=== PATIENT | female | born 1950 | race Caucasian/White ===

== ENCOUNTER 2020-03-04 12:05 | Outpatient (REF) | payer MEDICARE, SELFPAY ==
--- NOTE | 2020-03-04 12:11 | MM_ITS ---
EXAMINATION: MM SCREENING DIGITAL BREAST TOMOSYNTHESIS, BILATERAL CLINICAL INFORMATION: Screening. Asymptomatic. The lifetime risk of breast cancer based on the Tyrer-Cuzick Model is 6.5%. COMPARISON: Mammography: February 23, 2019 and studies dating back to April 19, 2006 TECHNIQUE: Digital breast tomosynthesis is performed in both the craniocaudal and mediolateral oblique views along with computer-aided detection (CAD). Synthesized 2D images are generated from the tomosynthesis. FINDINGS: There are scattered areas of fibroglandular density (ACR BI-RADS breast composition Category b). There are no significant masses, abnormal calcifications, or other abnormalities. MM/MM tomosynthesis screening BI IMPRESSION: There are no significant changes from prior study. ASSESSMENT: BI-RADS 1: Negative RECOMMENDATION: Routine annual mammography screening. This patient's information was entered into a reminder system with a target due date for their next mammogram.
== END 2020-03-04 12:06 | disposition home or self-care (01) ==
LOC: HO.MAMMO 12:05
PROVIDERS: PCP Internal Medicine; Visit Provider Internal Medicine
DX: Z12.31 Encounter for screening mammogram for malignant neoplasm of breast (principal)
CPT/HCPCS: 77063; 77067

== ENCOUNTER 2020-03-16 13:48 | Outpatient (REF) | payer MEDICARE, SELFPAY ==
[2020-03-16 18:12] LABS: Estimated Average Glucose 206 mg/dL; Hemoglobin A1c % 8.8 %
[2020-03-16 18:20] LABS: Cholesterol 153 mg/dL; HDL Cholesterol 38 mg/dL; LDL Cholesterol Calculated 78 mg/dl; Triglycerides 185 mg/dL
== END 2020-03-16 13:49 | disposition home or self-care (01) ==
LOC: HO.MANLR 13:48
PROVIDERS: PCP Internal Medicine; Visit Provider Physician Assistant
DX: E11.9 Type 2 diabetes mellitus without complications (principal)
CPT/HCPCS: 80061; 83036

== ENCOUNTER 2020-06-17 11:03 | Outpatient (REF) | payer MEDICARE, SELFPAY ==
[2020-06-17 13:33] LABS: Estimated Average Glucose 226 mg/dL; Hemoglobin A1c % 9.5 %
[2020-06-17 13:33] LABS: Microalbum/Creatinine Ratio Ur 11.2 ug/mg cr
[2020-06-17 13:37] LABS: Alanine Aminotransferase 28 U/L (0-31); Albumin Level 4.1 g/dL (3.5-5.0); Alkaline Phosphatase 175 U/L (39-117); Anion Gap 13 (12-20); Aspartate Amino Transferase 26 U/L (5-31); Bilirubin Total 1.5 mg/dL (0.0-1.0); Blood Urea Nitrogen 17 mg/dL (9-16); Calcium 9.1 mg/dL (8.4-10.2); Carbon Dioxide 28 mmol/L (22-29); Chloride 99 mmol/L (96-108); Cholesterol 158 mg/dL; Estimated Glomerular Filt Rate > 60; Glucose Fasting 265 mg/dL (60-99); HDL Cholesterol 38 mg/dL; LDL Cholesterol Calculated 77 mg/dl; Potassium 4.9 mmol/L (3.3-5.1); Sodium 135 mmol/L (135-145); Total Protein 6.8 g/dL (6.5-8.0); Triglycerides 217 mg/dL
== END 2020-06-17 11:04 | disposition home or self-care (01) ==
LOC: HO.MANLR 11:03
PROVIDERS: PCP Internal Medicine; Visit Provider Physician Assistant
DX: E11.9 Type 2 diabetes mellitus without complications (principal)
CPT/HCPCS: 36415; 80053; 80061; 82043; 83036

== ENCOUNTER 2020-09-21 13:36 | Outpatient (REF) | payer MEDICARE, SELFPAY ==
[2020-09-21 18:01] LABS: Estimated Average Glucose 189 mg/dL; Hemoglobin A1c % 8.2 %
== END 2020-09-21 13:37 | disposition home or self-care (01) ==
LOC: HO.MANLDS 13:36
PROVIDERS: PCP Internal Medicine; Visit Provider Physician Assistant
DX: E11.9 Type 2 diabetes mellitus without complications (principal)
CPT/HCPCS: 36415; 83036

== ENCOUNTER 2020-12-16 10:56 | Outpatient (REF) | payer MEDICARE, SELFPAY ==
[2020-12-16 13:49] LABS: Vitamin D 25-OH Total 49.6 ng/mL (>30)
[2020-12-17 07:34] LABS: Estimated Average Glucose 192 mg/dL; Hemoglobin A1c % 8.3 %
== END 2020-12-16 10:57 | disposition home or self-care (01) ==
LOC: HO.MANLDS 10:56
PROVIDERS: PCP Physician Assistant; Visit Provider Physician Assistant
DX: E55.9 Vitamin D deficiency, unspecified (principal); E11.9 Type 2 diabetes mellitus without complications
CPT/HCPCS: 36415; 82306; 83036

== ENCOUNTER 2021-04-28 13:34 | Outpatient (REF) | payer MEDICARE, SELFPAY ==
[2021-04-28 17:36] LABS: Alanine Aminotransferase 24 U/L (0-31); Albumin Level 4.1 g/dL (3.5-5.0); Alkaline Phosphatase 124 U/L (39-117); Anion Gap 13 (12-20); Aspartate Amino Transferase 22 U/L (5-31); Blood Urea Nitrogen 16 mg/dL (9-16); Calcium 9.4 mg/dL (8.4-10.2); Carbon Dioxide 27 mmol/L (22-29); Chloride 103 mmol/L (96-108); Cholesterol 213 mg/dL; Estimated Glomerular Filt Rate > 60; Glucose Random 123 mg/dL (60-115); HDL Cholesterol 44 mg/dL; LDL Cholesterol Calculated 125 mg/dl; Potassium 3.8 mmol/L (3.3-5.1); Sodium 139 mmol/L (135-145); Total Protein 6.9 g/dL (6.5-8.0); Triglycerides 224 mg/dL
[2021-04-28 17:38] LABS: Estimated Average Glucose 157 mg/dL; Hemoglobin A1c % 7.1 %
[2021-04-28 18:25] LABS: Creatinine Urine 31.93 mg/dL; Microalbumin Urine < 5.0 mg/L
== END 2021-04-28 13:35 | disposition home or self-care (01) ==
LOC: HO.MANLDS 13:34
PROVIDERS: PCP Physician Assistant; Visit Provider Physician Assistant
DX: E11.9 Type 2 diabetes mellitus without complications (principal)
CPT/HCPCS: 36415; 80053; 80061; 82043; 83036

== ENCOUNTER 2021-07-21 15:42 | Outpatient (REF) | payer OTHER, SELFPAY | END 2021-07-21 15:43 | disposition home or self-care (01) | LOC: HO.MANLDS 15:42 | PROVIDERS: PCP Physician Assistant; Visit Provider Physician Assistant | DX: R30.0 Dysuria (principal) | CPT/HCPCS: 87086; 87088; 87186 ==

== ENCOUNTER 2021-10-09 10:21 | Outpatient (REF) | payer OTHER, SELFPAY ==
[2021-10-09 14:07] LABS: Vitamin D 25-OH Total 37.9 ng/mL (>30)
== END 2021-10-09 10:22 | disposition home or self-care (01) ==
LOC: HO.MANLDS 10:21
PROVIDERS: Visit Provider Physician Assistant
DX: E55.9 Vitamin D deficiency, unspecified (principal)
CPT/HCPCS: 36415; 82306

== ENCOUNTER 2022-01-10 09:31 | Outpatient (REF) | payer OTHER, SELFPAY ==
[2022-01-10 11:29] LABS: Estimated Average Glucose 148 mg/dL; Hemoglobin A1c % 6.8 %
[2022-01-10 11:59] LABS: Creatinine Urine 23.32 mg/dL; Microalbumin Urine < 5.0 mg/L
[2022-01-10 14:45] LABS: Alanine Aminotransferase 20 U/L (0-31); Albumin Level 4.2 g/dL (3.5-5.0); Alkaline Phosphatase 147 U/L (39-117); Anion Gap 15 (12-20); Aspartate Amino Transferase 20 U/L (5-31); Bilirubin Total 1.2 mg/dL (0.0-1.0); Blood Urea Nitrogen 16 mg/dL (9-16); Calcium 9.3 mg/dL (8.4-10.2); Carbon Dioxide 26 mmol/L (22-29); Chloride 102 mmol/L (96-108); Cholesterol 224 mg/dL; Estimated Glomerular Filt Rate > 60; Glucose Random 211 mg/dL (60-115); HDL Cholesterol 45 mg/dL; LDL Cholesterol Calculated 139 mg/dl; Potassium 4.4 mmol/L (3.3-5.1); Sodium 139 mmol/L (135-145); Triglycerides 201 mg/dL
[2022-01-10 15:10] LABS: Vitamin D 25-OH Total 42.5 ng/mL (>30)
== END 2022-01-10 09:32 | disposition home or self-care (01) ==
LOC: HO.MANLDS 09:31
PROVIDERS: Visit Provider Physician Assistant
DX: E11.65 Type 2 diabetes mellitus with hyperglycemia (principal); E55.9 Vitamin D deficiency, unspecified
CPT/HCPCS: 36415; 80053; 80061; 82043; 82306; 83036

== ENCOUNTER 2022-04-13 10:39 | Outpatient (REF) | payer OTHER, SELFPAY ==
[2022-04-13 11:57] LABS: Estimated Average Glucose 160 mg/dL; Hemoglobin A1c % 7.2 %
== END 2022-04-13 10:40 | disposition home or self-care (01) ==
LOC: HO.MANLDS 10:39
PROVIDERS: Visit Provider Physician Assistant
DX: E11.65 Type 2 diabetes mellitus with hyperglycemia (principal); E55.9 Vitamin D deficiency, unspecified
CPT/HCPCS: 36415; 83036

== ENCOUNTER 2022-07-03 10:10 | Outpatient (REF) | payer OTHER, SELFPAY ==
[2022-07-03 12:16] LABS: Estimated Average Glucose 151 mg/dL; Hemoglobin A1c % 6.9 %
[2022-07-03 14:21] LABS: Alanine Aminotransferase 26 U/L (0-31); Alkaline Phosphatase 146 U/L (39-117); Anion Gap 13 (12-20); Aspartate Amino Transferase 22 U/L (5-31); Bilirubin Total 0.9 mg/dL (0.0-1.0); Blood Urea Nitrogen 16 mg/dL (9-16); Calcium 8.9 mg/dL (8.4-10.2); Carbon Dioxide 28 mmol/L (22-29); Chloride 103 mmol/L (96-108); Cholesterol 219 mg/dL; Estimated Glomerular Filt Rate > 60; Glucose Fasting 178 mg/dL (60-99); HDL Cholesterol 48 mg/dL; LDL Cholesterol Calculated 150 mg/dl; Sodium 140 mmol/L (135-145); Total Protein 6.6 g/dL (6.5-8.0); Triglycerides 108 mg/dL
[2022-07-03 14:39] LABS: Vitamin D 25-OH Total 47.5 ng/mL (>30)
== END 2022-07-03 10:11 | disposition home or self-care (01) ==
LOC: HO.MANLDS 10:10
PROVIDERS: Visit Provider Physician Assistant
DX: E11.65 Type 2 diabetes mellitus with hyperglycemia (principal); E55.9 Vitamin D deficiency, unspecified
CPT/HCPCS: 36415; 80053; 80061; 82306; 83036

== ENCOUNTER 2022-10-05 09:44 | Outpatient (REF) | payer OTHER, SELFPAY ==
[2022-10-05 11:25] LABS: Estimated Average Glucose 157 mg/dL; Hemoglobin A1c % 7.1 %
[2022-10-05 11:29] LABS: Alanine Aminotransferase 36 U/L (0-31); Albumin Level 3.9 g/dL (3.5-5.0); Alkaline Phosphatase 143 U/L (39-117); Anion Gap 13 (12-20); Aspartate Amino Transferase 24 U/L (5-31); Bilirubin Total 1.1 mg/dL (0.0-1.0); Blood Urea Nitrogen 19 mg/dL (9-16); Calcium 9.1 mg/dL (8.4-10.2); Carbon Dioxide 25 mmol/L (22-29); Chloride 104 mmol/L (96-108); Cholesterol 205 mg/dL; Estimated Glomerular Filt Rate > 60; Glucose Random 238 mg/dL (60-115); HDL Cholesterol 45 mg/dL; LDL Cholesterol Calculated 115 mg/dl; Potassium 4.3 mmol/L (3.3-5.1); Sodium 138 mmol/L (135-145); Total Protein 6.7 g/dL (6.5-8.0); Triglycerides 229 mg/dL
[2022-10-05 11:45] LABS: Vitamin D 25-OH Total 67.2 ng/mL (>30)
== END 2022-10-05 09:45 | disposition home or self-care (01) ==
LOC: HO.MANLDS 09:44
PROVIDERS: Visit Provider Physician Assistant
DX: E11.65 Type 2 diabetes mellitus with hyperglycemia (principal); E55.9 Vitamin D deficiency, unspecified
CPT/HCPCS: 36415; 80053; 80061; 82043; 82306; 83036

== ENCOUNTER 2023-01-11 09:58 | Outpatient (REF) | payer OTHER, SELFPAY ==
[2023-01-11 14:31] LABS: Estimated Average Glucose 160 mg/dL; Hemoglobin A1c % 7.2 % (<6.0)
[2023-01-11 14:46] LABS: Creatinine Urine 53.43 mg/dL; Microalbum/Creatinine Ratio Ur 20.5 ug/mg cr (<30)
[2023-01-11 14:59] LABS: Alanine Aminotransferase 28 U/L (0-31); Albumin Level 4.1 g/dL (3.5-5.0); Alkaline Phosphatase 134 U/L (39-117); Anion Gap 15 (12-20); Aspartate Amino Transferase 25 U/L (5-31); Bilirubin Total 1.3 mg/dL (0.0-1.0); Blood Urea Nitrogen 16 mg/dL (9-16); Calcium 9.1 mg/dL (8.4-10.2); Carbon Dioxide 23 mmol/L (22-29); Chloride 105 mmol/L (96-108); Cholesterol 215 mg/dL (<200); Estimated Glomerular Filt Rate > 60; Glucose Random 254 mg/dL (60-115); HDL Cholesterol 44 mg/dL (>40); LDL Cholesterol Calculated 133 mg/dL (<100); Potassium 3.7 mmol/L (3.3-5.1); Sodium 139 mmol/L (135-145); Total Protein 7.1 g/dL (6.5-8.0); Triglycerides 190 mg/dL (<150); Vitamin D 25-OH Total 74.8 ng/mL (>30)
== END 2023-01-11 09:59 | disposition home or self-care (01) ==
LOC: HO.MANLDS 09:58
PROVIDERS: Visit Provider Physician Assistant
DX: E11.65 Type 2 diabetes mellitus with hyperglycemia (principal); E55.9 Vitamin D deficiency, unspecified
CPT/HCPCS: 36415; 80053; 80061; 82043; 82306; 82570; 83036

== ENCOUNTER 2023-01-18 10:53 | Outpatient (REF) | payer OTHER, SELFPAY ==
[2023-01-18 14:13] LABS: Appearance Urine Clear; Color Urine Yellow; Glucose Urine UA >=1000 mg/dL (Negative); Leukocyte Esterase Urine Trace (Negative); Nitrite Urine Negative (Negative); Specific Gravity - Urine 1.015 (1.005-1.025); UMIC TRIGGER UACC YES; Urine Blood Negative (Negative); Urine Ketones Negative (Negative); Urine Protein Negative (Neg-Trace)
[2023-01-18 14:20] LABS: Bacteria Urine None Seen (None Seen); Hyaline Casts Urine 0-2 /LPF (0-2); RBC Urine 0-2 /HPF (0-2); Squamous Epithelial Cell Urine 0-2 /HPF (0-2); WBC Urine 0-5 /HPF (0-5)
== END 2023-01-18 10:54 | disposition home or self-care (01) ==
LOC: HO.MANLDS 10:53
PROVIDERS: Visit Provider Physician Assistant
DX: R30.0 Dysuria (principal)
CPT/HCPCS: 81001; 81003

== ENCOUNTER 2023-04-05 10:44 | Outpatient (REF) | payer OTHER, SELFPAY | END 2023-04-05 10:45 | disposition home or self-care (01) | LOC: HO.MANLDS 10:44 | PROVIDERS: Visit Provider Physician Assistant | DX: E11.65 Type 2 diabetes mellitus with hyperglycemia (principal); M81.0 Age-related osteoporosis without current pathological fracture | CPT/HCPCS: 36415; 80053; 82306; 83036 ==

== ENCOUNTER 2023-07-16 11:40 | Outpatient (REF) | payer OTHER, SELFPAY ==
[2023-07-16 15:22] LABS: Cholesterol 226 mg/dL (<200); HDL Cholesterol 46 mg/dL (>40); LDL Cholesterol Calculated 141 mg/dL (<100); Triglycerides 196 mg/dL (<150)
== END 2023-07-16 11:41 | disposition home or self-care (01) ==
LOC: HO.MANLDS 11:40
PROVIDERS: Visit Provider Physician Assistant
DX: E11.65 Type 2 diabetes mellitus with hyperglycemia (principal)
CPT/HCPCS: 36415; 80061

== ENCOUNTER 2024-01-22 10:17 | Outpatient (REF) | payer OTHER, SELFPAY ==
[2024-01-27 12:09] LABS: VITAMIN D (1,25 OH) D3 30 pg/mL; Vit D (1,25-Dihydroxy) Total 30 pg/mL (18-72); Vitamin D (1,25 OH) D2 <8 pg/mL
== END 2024-01-22 10:18 | disposition home or self-care (01) ==
LOC: HO.MANLDS 10:17
PROVIDERS: Internal Medicine; Visit Provider Physician Assistant
DX: M81.0 Age-related osteoporosis without current pathological fracture (principal)
CPT/HCPCS: 36415; 82652

== ENCOUNTER 2024-04-29 12:34 | Outpatient (REF) | payer OTHER, SELFPAY ==
[2024-04-29 12:57] LABS: MANUAL DIFF FLAG NO
[2024-04-29 13:06] LABS: Basophils Percent Auto 0.1 % (0-2); Eosinophils Absolute Auto 0.1 X10*3/uL (0.0-0.4); Hematocrit 41.3 % (37.0-47.0); Hemoglobin 14.3 g/dl (12.0-16.0); Imm Gran Abs Auto 0.02 X10*3/uL (0.00-0.03); Imm Gran Pct Auto 0.3 % (0.0-0.4); Lymphocytes Absolute Auto 2.3 X10*3/uL (1.2-4.9); Lymphocytes Percent Auto 32.9 % (20-40); Mean Corpuscular HGB Conc 34.6 g/dl (31.0-35.0); Mean Corpuscular Hemoglobin 28.2 pg (27.0-33.0); Mean Corpuscular Volume 81.5 fL (80.0-98.0); Mean Platelet Volume 9.1 fL (9.4-12.3); Monocytes Absolute Auto 0.4 X10*3/uL (0.1-1.2); Monocytes Percent Auto 5.3 % (2-11); Neutrophils Absolute Auto 4.2 x10*3/uL (2.0-8.3); Neutrophils Percent Auto 60.4 % (45-73); Platelet Count 241 X10*3/uL (160-400); Red Blood Count 5.07 X10*6/uL (4.20-5.50); Red Cell Distribution Width 12.1 % (11.0-16.0)
[2024-04-29 13:33] LABS: Estimated Average Glucose 180 mg/dL; Hemoglobin A1C 236.9663 umol/L; Hemoglobin A1c % 7.9 % (<6.0); Total Hemoglobin (HGBA1C) 3753.4126 umol/L
[2024-04-29 13:52] LABS: Alanine Aminotransferase 34 U/L (0-31); Albumin Level 4.1 g/dL (3.5-5.0); Alkaline Phosphatase 139 U/L (39-117); Anion Gap 12 (12-20); Aspartate Amino Transferase 33 U/L (5-31); Bilirubin Total 1.4 mg/dL (0.0-1.0); Blood Urea Nitrogen 16 mg/dL (9-16); Carbon Dioxide 25 mmol/L (22-29); Chloride 103 mmol/L (96-108); Cholesterol 235 mg/dL (<200); Estimated Glomerular Filt Rate > 60; Glucose Random 209 mg/dL (60-115); HDL Cholesterol 44 mg/dL (>40); LDL Cholesterol Calculated 162 mg/dL (<100); Potassium 4.2 mmol/L (3.3-5.1); Sodium 136 mmol/L (135-145); Total Protein 7.2 g/dL (6.5-8.0); Triglycerides 145 mg/dL (<150)
[2024-04-29 14:06] LABS: Vitamin D 25-OH Total 41.6 ng/mL (>30)
--- OUTSIDE RECORDS SUMMARY | 2024-04-29 14:44 | XMS_ITS | Data Portability ---
Author Organization [facility] Service Address [address] [place] [address] Assessment Encounter Date Assessment Date Assessment LastModified by Organization Details LastModified Time 10/09/2022 10/09/2022 The patient denies recent falls or recurrent falls. Denies instability, weakness, abnormal gait, or difficulties with movement. The patient wears correct, supportive shoes and is not otherwise severely visually impaired. The patient is full weight bearing and if using the assistance of a cane or walker feels supported and stable with the use of such devices. All medical conditions have been taken into account that may pose a risk for the patient for falls. Home nigel, carpets and/or rugs do not pose a challenge for the patient. The patient has been educated about the use of vitamin D supplementation for bone health and prevention of hypotensive episodes that may increase risk for fall. All question and concerns were answered to the patient's satisfaction. [email or web address] Not available 10/09/2022 14:47:07 04/10/2023 04/10/2023 Patient agreed and verbally consents to this audio and video Telehealth appt via a secure platform [email or web address] Not available 04/10/2023 15:36:20 Plan of Treatment Reminders Order Date Submit Date Provider Last Modified By Organization Details Last Modified Time Details Appointments FOLLOW UP 15 2024 04:00P M VICKY HENRY Not available Not available Not available Lab urinalysi s complete, reflex culture 2022 023 [facility], [address] [place] [address], [place], [address], 01/21/2023 11:32:32 vitamin D, 25-hydrox y, total, serum 2023 024 [facility], [address] [place] [address], [id number], 10/22/2023 14:57:03 HbA1c (hemoglob in A1c), blood 2023 [facility], [address] [place] [address], [id number], 10/22/2023 14:57:03 CMP, serum or plasma 2023 [facility], [address] [place] [address], [place], [address], 10/22/2023 14:57:03 lipid panel, serum 2023 [facility], [address] [place] [address], [id number], 10/22/2023 14:57:03 CBC w/ auto diff 2023 [facility], [address] [place] [address], [id number], 10/22/2023 14:57:03 Referral None recorded. Procedures None recorded. Surgeries None recorded. Imaging None recorded. Medication Orders None recorded. Patient TargetsNo targets recorded. Patient Instructions Encounter Date Encounter Id Patient Instructions Last Modified By Organization Details Last Modified Time 10/09/2022 [id number] statins: care instructions [email or web address] Not available 10/09/2022 14:47:38 Reason for Referral None Reported. Results Created Date Observation Date Name Description Value Unit Range Abnormal Flag Note LastModifiedBy Organization Detail LastModifiedTime Result Notes None recorded. 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/ nml intraocul ar pressure Ariadna zamudio [place] - [facility] 13:28:39 Dysuria 91296111 Active 2021 VICKY HENRY [address] [place], [address], [facility] 2 15:01:01 Opioid abuse 1912254 Active 2017 [facility]one [facility] 13:28:39 Menopaus e Active 2017 [facility] 13:28:39 Type 2 diabetes mellitus 49270809 Active 2017 Ariadnavaughn [facility] 9 13:28:39 [facility]ia l hyperten quinn 65926002 Active 2017 Ariadna Jose [facility] 9 13:28:39 Hyperlip idemia 07470527 Active 2017 Ariadnavaughn [facility] 9 13:28:39 Osteopor osis 62730839 Active 2017 Ariadna Jose [facility] 9 13:28:39 Depressi ve disorder 89992930 Active 2017 Ariadna Jose [facility] 9 13:28:39 Vitamin D deficien cy 66725449 Active 2017 Ariadna Jose [facility] 9 13:28:39 Problem Notes None recorded. Medical Equipment None Reported. Allergies No known drug allergies Medications Name Sig Start Date Stop Date Status Note LastModified by Organization Details LastModified Time Prescriptio n - New 08/24 completed Not Available Not Available Not Available penicillin V potassium 250 mg tablet TAKE 1 TABLET BY MOUTH EVERY 6 HOURS 05/03 completed Not Available Not Available Not Available atorvastati n 20 mg tablet Take 1 tablet daily. active Not Available Not Available No t Available atorvastati n 10 mg tablet 03/22 completed Not Available Not Available Not Available ibuprofen 800 mg tablet 10/11 completed Not Available Not Available Not Available FreeStyle Lancets 28 gauge USE DIRECTED TWICE DAILY active Not Available Not Available No t Available sulfamethox azole 800 mg-trimetho prim 160 mg tablet TAKE 1 TABLET BY MOUTH EVERY 12 HOURS FOR 7 DAYS 10/11 completed Not Available Not Available Not Available prednisolon e acetate 1 % eye drops,suspe nsion 12/24 completed Not Available Not Available Not Available lisinopril 10 mg tablet TAKE 1 TABLET BY MOUTH EVERY DAY active Not Available Not Available No t Available amoxicillin 250 mg capsule TAKE ONE CAPSULE BY MOUTH EVERY 8 HOURS FOR 7 DAYS 05/03 completed Not Available Not Available Not Available alcohol swabs 01/31 completed Not Available Not Available Not Available ergocalcife rol (vitamin D2) 1,250 mcg (50,000 unit) capsule TAKE 1 CAPSULE BY MOUTH EVERY WEEK active Not Available Not Available No t Available metformin ER 500 mg tablet,exte nded release 24 hr TAKE 2 TABLETS BY MOUTH EVERY DAY 10/11 completed Not Available Not Available Not Available bupropion HCl XL 300 mg 24 hr tablet, extended release TAKE 1 TABLET BY MOUTH EVERY DAY active Not Available Not Available No t Available duloxetine 20 mg capsule,del ayed release TAKE 1 CAPSULE BY MOUTH EVERY DAY 12/14 completed Not Available Not Available Not Available multivitami n qd active Not Available Not Available Not Available FreeStyle Lite Meter kit active Not Available Not Available Not Available FreeStyle Lite Strips USE TO CHECK BLOOD SUGAR DAILY 2021 active Not Available Not Available Not Avai lable Calcium 500 With D qd active Not Available Not Available Not Available Prevnar 13 (PF) 0.5 mL intramuscul ar syringe ADM 0.5ML IM UTD 06/21 completed Not Available Not Available Not Available melatonin 5 mg capsule Take 1 capsule every day by oral route. active Not Available Not Available No t Available buprenorphi ne 8 mg-naloxone 2 mg sublingual film DISSOLVE 1 FILM UNDER THE TONGUE EVERY DAY active Not Available Not Available No t Available magnesium 400 mg (as magnesium oxide) capsule Take 1 capsule every day by oral route. active Not Available Not Available No t Available Trulicity 0.75 mg/0.5 mL subcutaneou s pen injector INJECT 0.5 ML SUBCUTANE OUSLY WEEKLY active Not Available Not Available No t Available Fluzone High-Dose (PF) 180 mcg/0.5 mL intramuscul ar syringe 05/29 completed Not Available Not Available Not Available Afluria Qd (36 mos up)(PF)60 mcg (15 mcg x4)/0.5 mL IM syringe ADM 0.5ML IM UTD 06/21 completed Not Available Not Available Not Available Vitals Date Recorded Body height Body mass index (BMI) Body weight Heart rate Oxygen saturation Oxygen saturation in Arterial blood by Pulse oximetry Systolic blood pressure Diastolic blood pressure Provider Name and Address Organization Details Last Updated DateTime 3 165.74 cm 33 kg/m2 37351.4 7 g 78 /min 98 % 98 % 142 mm[Hg] 80 mm[Hg] VICKY HENRY [address] [place], [address], [facility] 3 14:28:56 Date Recorded Body height Body mass index (BMI) Body weight Heart rate Oxygen saturation Oxygen saturation in Arterial blood by Pulse oximetry Systolic blood pressure Diastolic blood pressure Provider Name and Address Organization Details Last Updated DateTime 3 165.74 cm 32.5 kg/m2 61718.7 g 75 /min 97 % 97 % 134 mm[Hg] 70 mm[Hg] Yelitza Kong [facility] 3 13:42:12 Date Recorded Body height Body mass index (BMI) Body weight Heart rate Oxygen saturation Oxygen saturation in Arterial blood by Pulse oximetry Systolic blood pressure Diastolic blood pressure Provider Name and Address Organization Details Last Updated DateTime 4 167.64 cm 31.5 kg/m2 89151.5 1 g 66 /min 97 % 97 % 126 mm[Hg] 76 mm[Hg] Gerardo Robbins [facility] 4 14:26:29 Date Recorded Body height Body mass index (BMI) Body weight Heart rate Oxygen saturation Oxygen saturation in Arterial blood by Pulse oximetry Systolic blood pressure Diastolic blood pressure Provider Name and Address Organization Details Last Updated DateTime 4 167.64 cm 31.5 kg/m2 03710.5 1 g 68 /min 97 % 97 % 128 mm[Hg] 78 mm[Hg] Loni Esteves [facility] 4 15:18:30 Social History Question Answer Notes LastModified by Organizat ion Details LastModified Time Tobacco Smoking Status Former Smoker Not Available [facility] 02/02/2020 03:36:23 What Was The Date Of Your Most Recent Tobacco Screening? 01/27/2024 [email or web address] Information not available 01/27/2024 How Many Years Have You Smoked Tobacco? 35 [id number] Information not available 02/02/2020 Sex: Unknown Functional Status None recorded. Mental Status None recorded. Family History Nothing Reported. Medical History No medical history recorded. Gynecological HistoryNo gynecological history recorded. Obstetrics History GPAL:G 0 P 0 0 0 0 Immunizations Vaccine Type Date Status Note Provider Nam e and Address Organization Details Recorded Time COVID-19, mRNA, LNP-S, PF, 100 mcg/0.5mL dose or 50 mcg/0.25mL dose 1 [facility]20[facility] 08:16:32 COVID-19, mRNA, LNP-S, PF, 30 mcg/0.3 mL dose 2 completed Juanita zamudio [facility] 01/17/2022 08:16:46 COVID-19, mRNA, LNP-S, PF, 100 mcg/0.5mL dose or 50 mcg/0.25mL dose 2 completed Juanita Felder [facility] 01/17/2022 08:16:58 Influenza, split virus, quadrivalent, preservative 1 completed [facility] 01/17/2022 08:17:19 pneumococcal polysaccharide PPV23 1 completed [facility] 01/17/2022 08:17:40 influenza, unspecified formulation 2 completed [facility] 04/18/2022 08:14:20 Influenza, split virus, quadrivalent, preservative 9 completed Ariadna Garcia [facility] 03/11/2019 13:28:44 Pneumococcal conjugate PCV 13 0 completed [facility] 09/20/2020 09:34:38 COVID-19, mRNA, LNP-S, PF, 30 mcg/0.3 mL dose 1 completed Hazel zamudio [facility] 09/20/2020 09:34:53 COVID-19, mRNA, LNP-S, PF, 30 mcg/0.3 mL dose 1 completed Hazel zamudio [facility] 09/20/2020 09:35:00 Past Encounters Encounter ID Performer Location Encounter Start Date Encounter Closed Date Diagnosis/Indication Diagnosis SNOMED-CT Code Diagnosis ICD10 Code Diagnosis Note [id number] Caroline [facility] [address] [facility] [address] [address] 09/04/2017 13:59:06 09/04/2017 15:43:16 Type 2 diabetes mellitus 07412658 E11.65 going to work diet, eliminate ice cream Essential hypertension 24270708 I10 good control Osteoporosis 91477400 M8 1.0 on calcium, will add rx for vitamin d as she is insufficie nt emphasized importance of weight bearing exercise Depressive disorder 3548 9007 F33.9 continue bupropion Vitamin D deficiency 347 70535 E55.9 Hyperlipidemia 88995306 E78.5 will start atorvastat in as well [id number] [facility] [address] [facility],[place] [address] 12/11/2017 13:26:57 12/11/2017 14:04:47 Type 2 diabetes mellitus 78895225 E11.65 well controlled praised and encouraged to continue Essential hypertension 55795107 I10 good control Osteoporosis 39275091 M8 1.0 on both calcium and vitamin d emphasized importance of weight bearing exercise Depressive disorder 3548 9007 F33.9 continue bupropion Vitamin D deficiency 347 82826 E55.9 Hyperlipidemia 88494855 E78.5 well controlled on atorvastat in Screening procedure 2012 5006 Z13.9 [id number] [facility] [address] [facility] [address] [address] 03/18/2018 13:44:56 03/18/2018 16:46:30 Adult health examination 208341102 Z00.00 reviewed hcp Screening for cardiovascular system disease 892805878 Z13.6 utd and well controlled Screening for malignant neoplasm of colon 349172136 Z12.11 cologuard done 04/2016 will repeat 2020 refuses colonoscop y Screening for osteoporosis 709864452 Z13.820 bmd done 03/2017 Screening mammography 24 922965 Z12.31 mammo done 01/28/18 Screening for malignant neoplasm of cervix 504850927 Z12.4 had TAHBSO no longer requires pap Active or passive immunization 095371184 Z23 Body mass index 30+ - obesity 962174165 Z68.32 healthy diet and exercise Type 2 kan betes mellitus 06809959 E11.65 well controlled at 6.9 praised and encouraged to continue [id number] Suzanne Medrano NP, S [facility] [address] [facility], [place] [address] 06/17/2018 13:41:17 06/17/2018 15:16:40 Active or passive immunization 038462403 Z23 Type 2 kan betes mellitus 59708478 E11.65 check BS daily Vitamin D deficiency 347 91115 E55.9 on OTC, nml level Depressive disorder 3548 9007 F32.89 stable Hyperlipidemia 24360947 E78.2 Opioid abuse 9342966 F11 .10 consider tapering Essential hypertension 60032507 I10 [id number] [facility] [address] [facility], [place] [address] 09/26/2018 13:51:41 09/26/2018 14:36:32 Hyperlipidemia 20211973 E78.5 has been off med for a week, ran out LDL 154, will restart and increase dose in addition to diet Type 2 kan betes mellitus 15888014 E11.65 slightly elevated at 7.2 work on diet improvemen t Essential hypertension 22391446 I10 very well controlled Depressive disorder 3548 9007 F33.9 well controlled on wb Vitamin D deficiency 347 51425 E55.9 improved from 11/2017 will recheck now that she is just a vitamin d + calcium supplement [id number] [facility] [address] [facility],[place] [address] 12/24/2018 14:19:02 12/24/2018 15:13:56 Hyperlipidemia 32970022 E78.5 cholestero l much better controlled with atorvastat in Type 2 kan betes mellitus 13150126 E11.65 a1c improved from 7.2 to 6.9 keep up with diet and exercise Essential hypertension 77258289 I10 very well controlled Depressive disorder 5968 6427 F33.9 not as well controlled , feels like she has days where she is more depresssed and then sometimes she bounces back interested in trying cymbalta Vitamin D deficiency 347 88108 E55.9 stuck at 28 despite treatment, will build stores and then return to calcium + d as we approach the [facility] [address] [facility] [employer] [place] [address] 03/11/2019 13:20:12 03/11/2019 14:00:01 Hyperlipidemia 31031437 E78.5 cholestero l much better controlled with atorvastat in Type 2 kan betes mellitus 81466077 E11.65 a1c up to 7.3 agrees to exercise more goal is to exercise 30 minutes 5 times per week Essential hypertension 68737244 I10 very well controlled Depressive disorder 3898 7303 F33.9 depression is ok will consider trying duloxetine again no further changes at this time Vitamin D deficiency 347 99142 E55.9 improved. continue rx and then otc [place] [id number] VICKY HENRY [facility] [address] [facility] [employer] [address] 05/29/2019 10:29:52 05/29/2019 11:29:55 Dysuria 94865412 R30.9 that pt is having UTI symptoms including dysuria, increased frequency and itching for the past week U/A is postive for nitrites, WBCs, and glucose will be placing the pt on Bactrim for five days Type 2 kan betes mellitus 47165091 E11.9 Pt will have recheck of A1c and BS before next appt [id number] Caroline Jonathan [facility] [address] [facility] [employer] [address] 06/24/2019 13:34:17 07/06/2019 09:56:19 Depressive disorder 74584539 F33.9 depression is ok, worried about the current covid problem, but feels ok Type 2 kan betes mellitus 56758091 E11.65 a1c up to 8.7 very poor diet, not exercising determined to improve will defer med changes at this time f/u 3 months Hyperlipidemia 91037010 E78.5 cholestero [place] [id number] VICKY HENRY [facility] [address] [facility] [address],[place] [address] 08/25/2019 13:32:13 08/25/2019 15:23:13 Type 2 diabetes mellitus 47311183 E11.9 Pt will have recheck of A1c and BS before next appt work on diet and exercise hilda bw and if numbers are not down pt agrees on starting secondary medication for diabetes control Hyperlipidemia 05486809 E78.5 will stop atorvastat in and re check cmp Essential hypertension 93267253 I10 excellent [id number] VICKY HENRY [facility] [address] [facility],[place] [address] 09/08/2019 14:02:36 09/08/2019 14:39:44 Right upper quadrant pain 509045247 R10.11 hepatic function came back still elevated, even more so even after stopping her atorvastat in still having the RUQ pain, will check her on US to see if its related to gallbladde r or liver [id number] VICKY HENRY [facility] [address] [facility],[place] [address] 12/15/2019 13:38:06 12/15/2019 14:08:26 Depressive disorder 74572353 F32.9 stable Type 2 kan betes mellitus 32033189 E11.9 a1c is still the same will cut out breads and pastas, and reduce carbs the patient has been doing good otherwise with diet and cutting back on junk food will continue this and also cutting out pastas to see if it impacts the A1c Hyperlipidemia 00942329 E78.5 LFTs raised because of fatty liver not due to medication will start back on atrovastat in and monitor to make sure it is not any worse [id number] VICKY HENRY [facility] [address] [facility],[place] [address] 03/22/2020 10:07:31 03/22/2020 14:31:06 Essential hypertension 56211993 I10 excellent Type 2 kan betes mellitus 58587539 E11.9 a1c is still the same will cut out breads and pastas, and reduce carbs the patient has been doing good otherwise with diet and cutting back on junk food will continue this and also cutting out pastas to see if it impacts the A1c [id number] [facility] HENRY [facility] [address] [facility],[place] [address] 06/21/2020 14:08:33 06/21/2020 16:29:26 Type 2 diabetes mellitus 86052038 E11.9 a1c higher will cut out breads and pastas, and reduce carbs the patient has been doing good otherwise with diet and cutting back on junk food will continue this and also cutting out pastas to see if it impacts the A1c Hyperlipidemia 08994552 E78.5 much improved will continue on medication and fish oil supplement Essential hypertension 46412224 I10 BP fine today, will continue to monitor Depressive disorder 3548 9007 F32.9 [place] [id number] VICKY HENRY [facility] [address] [facility],[place] [address] 09/26/2020 14:13:05 09/26/2020 14:25:08 Type 2 diabetes mellitus 43971813 E11.65 A1c much improved with diet Opioid abuse 4072322 F11 .11 stable Depressive disorder 3548 9007 F33.9 stable today no interventi on Essential hypertension 85152968 I10 BP fine today, will continue to monitor Vitamin D below reference range 342708254 E55.9 will recheck vitamin D level [id number] V[facility] HENRY [facility] [address] [facility],[place] [address] 01/31/2021 11:13:41 01/31/2021 11:54:58 Type 2 diabetes mellitus 70362806 E11.65 A1c much improved with diet Essential hypertension 28280184 I10 BP fine today, will continue to monitor [id number] VICKY HENRY [facility] [address] [facility] [address],[place] [address] 05/03/2021 08:16:45 05/08/2021 10:39:11 Type 2 diabetes mellitus 15909933 E11.65 A1c much improved with diet Opioid abuse 8466006 F11 .11 stable Depressive disorder 0947 9007 F33.9 [place] [id number] VICKY HENRY [facility] [address] [facility],[place] [address] 07/21/2021 14:45:29 07/24/2021 09:53:54 Dysuria 76511415 R30.0 that pt is having UTI symptoms including dysuria, increased frequency and itching for the past week will be placing the pt on Bactrim for 7 days [id number] VICKY HENRY [facility] [address] [facility],[place] [address] 10/11/2021 14:18:17 10/11/2021 16:44:02 Type 2 diabetes mellitus 15484133 E11.65 A1c much improved with diet and trulicity Essential hypertension 61858104 I10 BP fine today, will continue to monitor [id number] V[facility] HENRY [facility] [address] [facility],[place] [address] 01/17/2022 14:01:49 01/19/2022 10:58:46 Type 2 diabetes mellitus 00838930 E11.65 A1c much improved with diet and trulicity Depressive disorder 5681 7497 F33.9 stable today no interventi on Hyperlipidemia 67579174 E78.5 much improved will continue on medication and fish oil supplement Essential hypertension 26799390 I10 BP fine today, will continue to monitor [id number] V[facility] HENRY [facility] [address] [facility] [address],[place] [address] 04/18/2022 14:01:40 04/18/2022 14:44:53 Type 2 diabetes mellitus 09519632 E11.65 pretty stable since last checkonly up to 7.2% Depressive disorder 9215 8787 F33.9 stable today no interventi on Essential hypertension 62878661 I10 BP fine today, will continue to monitorrec heck was 132/72 [id number] VICKY HENRY [facility] [address] [facility] [address],[place] [address] 07/06/2022 14:09:13 07/06/2022 15:22:46 Type 2 diabetes mellitus 43404164 E11.65 improved to 6.9% which is excellent results Depressive disorder 3548 9007 F33.9 stable today no interventi on Opioid abuse 9101493 F11 .11 stablestab le for years [id number] VICYK HENRY [facility] [address] [facility] [address],[place] [address] 10/09/2022 14:08:36 10/09/2022 16:21:26 Depressive disorder 76501425 F33.9 stable today no interventi on Essential hypertension 36682074 I10 BP fine today, will continue to monitorrec heck was 132/72 Hyperlipidemia 04161400 E78.2 much improved will continue on medication and fish oil supplement Type 2 kan betes mellitus 29202483 E11.65 up to 7.2%relate d to the holidaysis chana drop down again when she tightens up her diet [id number] VICKY HENRY [facility] [address] [facility] [address],[place] [address] 01/16/2023 13:19:12 01/16/2023 15:17:27 Dysuria 36389408 R30.0 will give urine on fri Type 2 kan betes mellitus 72884256 E11.65 up to 7.2%work on dietwas doing well at 6.9 [id number] VICKY HENRY [facility] [address] [facility] [address],[place] [address] 04/10/2023 08:02:17 04/10/2023 16:35:22 Type 2 diabetes mellitus 82896228 E11.65 up to 7.8%had COVID-19 which also contribute to higher sugar levelswork on diet and fu with test in 3 mos, if still elevated we discussed with patient about upping the trulicity which she is amendable to Vitamin D deficiency [id number] J94.9 excellent numbers [id number] VICKY HENRY [facility] [address] [facility] [address],[place] [address] 10/22/2023 14:15:30 10/23/2023 10:05:04 Depression screening [id number] Z13.31 negative Depressive disorder [id number] 9007 F33.9 stable today no interventi on Opioid abuse [id number] F11 .11 stablestab le for years Essential hypertension [id number] I10 BP is excellent Hyperlipidemia 38847955 E78.2 stable Type 2 kan betes mellitus [id number] E11.65 needs standing Vitamin D deficiency 347 97229 E55.9 excellent numbers [id number] VICKY HENRY [facility] [address] [facility] [address],[place] [address] 01/27/2024 15:12:58 01/27/2024 16:01:32 Depressive disorder 71210394 F33.9 stable today no interventi on Essential hypertension 59532483 I10 BP is excellent Type 2 kan betes mellitus 62151773 E11.65 needs standing Health Concerns Section Related Observation LastModified by Organization Detai ls LastModified Time None Recorded Concern Status LastModified by Organization Details LastModified Time None Recorded Advance Directives Directive None Recorded Payers Encounter Date Sequence Insurance Name Policy Number Policy Samuels Covered Member ID Samuels Member ID Guarantor Name 10/09/2022 1 [facility] - DOS ON OR AFTER 2022 - HALF-[employer]AY OPTIONS AND ONE CARE (MEDICARE REPLACEMENT/ADV ANTAGE - PPO) Rashmi Napoles Damaris [id number] Rashmi Napoles Damaris 01/16/2023 1 [facility] [employer] - DOS ON OR AFTER 2022 - HALF-WAY OPTIONS AND ONE CARE (MEDICARE REPLACEMENT/ADV ANTAGE - PPO) Rashmi Napoles Damaris [id number] Rashmi Napoles Damaris 04/10/2023 1 [facility] [employer] - DOS ON OR AFTER 2022 - [employer]AY [employer] AND ONE CARE (MEDICARE REPLACEMENT/ADV ANTAGE - PPO) Rashmi Napoles Damaris [id number] Rashmi Napoles Damaris 10/22/2023 1 [facility] [employer] - DOS ON OR AFTER 2022 - [employer]F-WAY [employer]IONS AND ONE CARE (MEDICARE REPLACEMENT/ADV ANTAGE - PPO) Rashmi Napoles Damaris [id number] Rashmi Napoles Damaris 01/27/2024 1 [facility] - DOS ON OR AFTER 2022 - HALF-WAY OPTIONS AND ONE CARE (MEDICARE REPLACEMENT/ADV ANTAGE - PPO) Rashmi Napoles Damaris [id number] Rashmi Ocampo Notes Date Note Type Note Provider Name a nd Address Organization Details Recorded Time 3 text/html f/u medication check depression disorder: stable on medicationHTN: the patient has stable BP at home; stable on recheck as lissette florian coatHLD: is stable; levels look [id number]: is up but related to her dietary changes; will work on thatfu in 3 mos VICKY HENRY [address] [facility], [place], [address], [facility] 10/09/2022 14:48:48 3 text/html 3 mos fu urinary frequency: could be urinary incontinence/overactiv e bladderher sugar is up to 7.2% from 6.9 notes her diet has been poorknows what she should avoidwill work on thatno issues with meds having urinary frequencycould be the sugar too but agreed to urinalysis just in case VICKY HENRY [address] [facility], [place], [address], [facility] 01/16/2023 14:02:52 4 text/html f/u 3 mos The patient is participating in this appointment via telemedicine communication with a phone call/video calling service ([place] [employer])The patient consents to use of these platforms in place of an in-person appointment due to either sick symptoms the patient is presenting with or current office closure due to COVID exposure in order to keep our office staff and patients safe the patient had COVID-19 about a week agothe patient mostly had headache and sinus pressurecurrently testing negative now the patient does not report any post-acute COVID-19 symptomsno cough, no fatigue the patient reports that her sugar has been highhave to take into consideration that she is coming off the holidays (admits she was eating poorly) and she was ill and her numbers were high when she had COVID-19 will give her a chance to implement lifestyle modifications and fu back up with repeat A1cif still elevated patient agrees to titrating up her trulicity dose no other concerns today VICKY HENRY [address] [place], [address], [facility] 04/10/2023 15:40:33 4 text/html f/u appt depression screening: The patient denies little pleasure in activities they find enjoyable, feeling depressed, difficulties sleeping, feeling tired or having little energy, change in appetite, feeling guilty, overwhelmed or unmotivated. The patient denies suicidal ideation, thoughts of hurting themselves or others. Their mood is appropriate, they show good judgement and clear understanding of the conversation. They are orientated to time, place and person. They are not expressing any concerning thoughts or actions that would need further investigation and treatment for mental health. HLD: needs BW T2DM: needs BW, didn't have standing orders, re-ordered vitamin D: stable VICKY HENRY [address] [place], [address], [facility] 10/22/2023 14:59:54 4 text/html medication f/u the patient reports that she is doing well with in the injections the patient reports that she did have one episode of nausea and vomiting otherwise no other side effects the patient does admit her diet isn't perfect, tries to stay on top of it did get her lab work as the hospital is two weeks behind currently with processing the lab feeling good overallBP is excellent waiting on her A1c and vitamin D levelwill f/u with patient after her lab-work VICKY HENRY [address] [place], [address], [facility] 01/27/2024 15:43:13 OBGyn Episode No OBEpisode recorded.
== END 2024-04-29 12:35 | disposition home or self-care (01) ==
LOC: HO.LABR 12:34
PROVIDERS: PCP Internal Medicine; Visit Provider Physician Assistant
DX: E78.2 Mixed hyperlipidemia (principal); E55.9 Vitamin D deficiency, unspecified; E11.65 Type 2 diabetes mellitus with hyperglycemia
CPT/HCPCS: 36415; 80053; 80061; 82306; 83036; 85025

== ENCOUNTER 2024-07-29 13:32 | Outpatient (REF) | payer OTHER, SELFPAY ==
[2024-07-29 13:47] LABS: MANUAL DIFF FLAG NO
[2024-07-29 14:07] LABS: Basophils Percent Auto 0.2 % (0-2); Eosinophils Absolute Auto 0.1 X10*3/uL (0.0-0.4); Hematocrit 41.5 % (37.0-47.0); Hemoglobin 14.5 g/dl (12.0-16.0); Imm Gran Abs Auto 0.01 X10*3/uL (0.00-0.03); Imm Gran Pct Auto 0.2 % (0.0-0.4); Lymphocytes Absolute Auto 2.3 X10*3/uL (1.2-4.9); Lymphocytes Percent Auto 37.5 % (20-40); Mean Corpuscular HGB Conc 34.9 g/dl (31.0-35.0); Mean Corpuscular Hemoglobin 28.4 pg (27.0-33.0); Mean Corpuscular Volume 81.4 fL (80.0-98.0); Mean Platelet Volume 9.3 fL (9.4-12.3); Monocytes Absolute Auto 0.3 X10*3/uL (0.1-1.2); Monocytes Percent Auto 5.6 % (2-11); Neutrophils Absolute Auto 3.4 x10*3/uL (2.0-8.3); Neutrophils Percent Auto 55.5 % (45-73); Platelet Count 212 X10*3/uL (160-400); Red Cell Distribution Width 12.3 % (11.0-16.0); White Blood Count 6.1 X10*3/uL (4.8-10.8)
[2024-07-29 14:17] LABS: Estimated Average Glucose 166 mg/dL; Hemoglobin A1C 217.2939 umol/L; Hemoglobin A1c % 7.4 % (<6.0); Total Hemoglobin (HGBA1C) 3795.1486 umol/L
[2024-07-29 14:44] LABS: Alanine Aminotransferase 34 U/L (0-31); Albumin Level 4.1 g/dL (3.5-5.0); Alkaline Phosphatase 148 U/L (39-117); Anion Gap 11 (12-20); Aspartate Amino Transferase 29 U/L (5-31); Bilirubin Total 1.4 mg/dL (0.0-1.0); Blood Urea Nitrogen 19 mg/dL (9-16); Calcium 9.2 mg/dL (8.4-10.2); Carbon Dioxide 25 mmol/L (22-29); Chloride 104 mmol/L (96-108); Cholesterol 243 mg/dL (<200); Estimated Glomerular Filt Rate > 60; Glucose Random 224 mg/dL (60-115); HDL Cholesterol 48 mg/dL (>40); LDL Cholesterol Calculated 156 mg/dL (<100); Sodium 136 mmol/L (135-145); Triglycerides 199 mg/dL (<150)
--- OUTSIDE RECORDS SUMMARY | 2024-07-29 14:50 | XMS_ITS | Data Portability ---
Author Organization [facility] Service Address [address] [place] [address] Assessment Encounter Date Assessment Date Assessment LastModified by Organization Details LastModified Time 04/10/2023 04/10/2023 Patient agreed and verbally consents to this audio and video Telehealth appt via a secure platform [email or web address] Not available 04/10/2023 15:36:20 Plan of Treatment Reminders Order Date Submit Date Provider Last Modified By Organization Details Last Modified Time Details Appointments FOLLOW UP 15 2024 03:45P VICKY ROMAN Not available Not available Not available Lab CMP, serum or plasma 2024 025 [facility], [address] [place] [address], [id number], 05/01/2024 16:05:33 HbA1c (hemoglob in A1c), blood 2024 025 [facility], [address] [place] [address], [id number], 05/01/2024 16:05:33 CBC w/ auto diff 2024 025 [facility], [address] [place] [address], [id number], 05/01/2024 16:05:34 hemoglobi n A1c, QN, blood 2024 025 [facility], [address] [place] [address], [id number], 05/01/2024 16:05:34 vitamin D, 25-hydrox y, total, serum 2023 024 [facility], [address] [place] [address], [id number], 10/22/2023 14:57:03 HbA1c (hemoglob in A1c), blood 2023 024 [facility], [address] [place] [address], [id number], 10/22/2023 14:57:03 CMP, serum or plasma 2023 024 [facility], [address] [place] [address], [id number], 10/22/2023 14:57:03 lipid panel, serum 2023 024 [facility], [address] [place] [address], [id number], 10/22/2023 14:57:03 CBC w/ auto diff 2023 024 [facility], [address] [place] [address], [id number], 10/22/2023 14:57:03 urinalysi s complete, reflex culture 2022 023 [facility], [address] [place] [address], [id number], 01/21/2023 11:32:32 Referral None recorded. Procedures None recorded. Surgeries None recorded. Imaging None recorded. Medication Orders None recorded. Patient TargetsNo targets recorded. Patient InstructionsNo instructions recorded. Reason for Referral None Reported. Results Created Date Observation Date Name Description Value Unit Range Abnormal Flag Note LastModifiedBy Organization Detail LastModifiedTime Result Notes None recorded. 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 Ariadna zamudio [facility] 9 13:28:39 Menopaus e Active [facility] 13:28:39 Type 2 diabetes mellitus 61830842 Active 2017 [facility] 9 13:28:39 [facility] hyperten quinn 96160664 Active 2017 Ariadna Jose [facility] 9 13:28:39 Hyperlip idemia 65747059 Active 2017 Ariadnavaughn Garcia [facility] 9 13:28:39 Osteopor osis 67523847 Active 2017 Ariadanvaughn Garcia [facility] 9 13:28:39 Depressi ve disorder 44587474 Active 2017 [facility]aughn [facility] 13:28:39 Vitamin D deficien cy 02308220 Active 2017 Ariadna Jose [facility] 9 13:28:39 Problem Notes None recorded. Medical [...] Not Available atorvastati n 20 mg tablet TAKE 1 TABLET BY MOUTH DAILY active Not Available Not Available No [...] TAKE 1 TABLET BY MOUTH EVERY DAY 2024 active Not Available Not Available Not Avai lable duloxetine 20 mg capsule,del ayed release TAKE [...] injector INJECT 0.5 ML SUBCUTANE OUSLY WEEKLY 2024 active Not Available Not Available Not Avai lable Fluzone High-Dose 2018- (PF) 180 mcg/0.5 mL intramuscul ar syringe [...] Updated DateTime 3 165.74 cm 32.5 kg/m2 80183.7 g 75 /min 97 % 97 % 134 mm[Hg] 70 mm[Hg] Yelitza Kong [facility] 3 13:42:12 Date Recorded Body height Body mass index (BMI) Body weight Heart rate Oxygen saturation Oxygen saturation in Arterial blood by Pulse oximetry Systolic blood pressure Diastolic blood pressure Provider Name and Address Organization Details Last Updated DateTime 4 167.64 cm 31.5 kg/m2 39635.5 1 g 66 /min 97 % 97 % 126 mm[Hg] 76 mm[Hg] Gerardo Robbins [facility] 4 14:26:29 Date Recorded Body height Body mass index (BMI) Body weight Heart rate Oxygen saturation Oxygen saturation in Arterial blood by Pulse oximetry Systolic blood pressure Diastolic blood pressure Provider Name and Address Organization Details Last Updated DateTime 4 167.64 cm 31.5 kg/m2 20032.5 1 g 68 /min 97 % 97 % 128 mm[Hg] 78 mm[Hg] Loni Esteves [facility] 4 15:18:30 Date Recorded Body height Body mass index (BMI) Body weight Heart rate Oxygen saturation Oxygen saturation in Arterial blood by Pulse oximetry Systolic blood pressure Diastolic blood pressure Provider Name and Address Organization Details Last Updated DateTime 5 167.64 cm 31.4 kg/m2 07874.7 9 g 78 /min 96 % 96 % 138 mm[Hg] 64 mm[Hg] Loni Esteves [facility] 5 15:51:42 Social History Question Answer Notes LastModified by Organizat ion Details LastModified Time Tobacco Smoking Status [facility]oker Not Available [facility]/2020 03:36:23 What Was The Date Of Your Most Recent Tobacco Screening? 01/27/2024 [email or web address] Information not available 01/27/2024 How Many Years Have You Smoked Tobacco? 35 [id number] Information not available 02/02/2020 Sex: Unknown Functional [...] or 50 mcg/0.25mL dose 1 completed Juanita zamudio [facility] 01/17/2022 08:16:32 COVID-19, mRNA, LNP-S, PF, 30 mcg/0.3 mL dose 2 completed Juanita zamudio [facility] 01/17/2022 08:16:46 COVID-19, mRNA, LNP-S, PF, 100 mcg/0.5mL dose or 50 mcg/0.25mL dose 2 completed Juanita zamudio [facility] 01/17/2022 08:16:58 Influenza, split virus, quadrivalent, preservative 1 completed Juanita zamudio [facility] 01/17/2022 08:17:19 pneumococcal polysaccharide PPV23 1 completed Juanita zamudio [facility] 01/17/2022 08:17:40 influenza, unspecified formulation 2 completed Juanita zamudio [facility] 04/18/2022 08:14:20 Influenza, split virus, quadrivalent, preservative 9 completed Ariadna zamudio [facility] 03/11/2019 13:28:44 Pneumococcal conjugate PCV 13 0 completed Hazel zamudio [facility] 09/20/2020 09:34:38 COVID-19, mRNA, LNP-S, PF, 30 mcg/0.3 mL dose 1 completed Hazel zamudio [facility] 09/20/2020 09:34:53 COVID-19, mRNA, LNP-S, PF, 30 mcg/0.3 mL dose 1 completed Hazel zamudio [facility] 09/20/2020 09:35:00 Past Encounters Encounter ID Performer Location Encounter Start Date Encounter Closed Date Diagnosis/Indication Diagnosis SNOMED-CT Code Diagnosis ICD10 Code Diagnosis Note [id number] Parag Roberts [facility] [address] [facility] [address] 09/04/2017 13:59:06 09/04/2017 15:43:16 Type 2 diabetes mellitus 21824926 E11.65 going to work diet, eliminate ice cream Essential hypertension 50465406 I10 good control Osteoporosis 21979979 M8 1.0 on calcium, will add rx for vitamin d as she is insufficie nt emphasized importance of weight bearing exercise Depressive disorder 3548 9007 F33.9 continue bupropion Vitamin D deficiency 347 03166 E55.9 Hyperlipidemia 05775911 E78.5 will start atorvastat in as well [id number] Parag Roberts [facility] [address] [facility] [facility] [address] 12/11/2017 13:26:57 12/11/2017 14:04:47 Type 2 diabetes mellitus 91097540 E11.65 well controlled praised and encouraged to continue Essential hypertension 41541496 I10 good control Osteoporosis 31342660 M8 1.0 on both calcium and vitamin d emphasized importance of weight bearing exercise Depressive disorder 3548 9007 F33.9 continue bupropion Vitamin D deficiency 347 99087 E55.9 Hyperlipidemia 23488158 E78.5 well controlled on atorvastat in Screening procedure 2012 5006 Z13.9 [id number] Parag Roberts [facility] [address] [facility] [address] 03/18/2018 13:44:56 03/18/2018 16:46:30 Adult health examination 562170096 Z00.00 reviewed hcp Screening for cardiovascular system disease 356452307 Z13.6 utd and well controlled Screening for malignant neoplasm of colon 269810260 Z12.11 cologuard done 04/2016 will repeat 2020 refuses colonoscop y Screening for osteoporosis 421214326 Z13.820 bmd done 03/2017 Screening mammography 24 612253 Z12.31 mammo done 01/28/18 Screening for malignant neoplasm of cervix 825880587 Z12.4 had TAHBSO no longer requires pap Active or passive immunization 925121233 Z23 Body mass index 30+ - obesity 519955367 Z68.32 healthy diet and exercise Type 2 kan betes mellitus 75438357 E11.65 well controlled at 6.9 praised and encouraged to continue [id number] Suzanne Medrano NP, S [facility] [address] [facility], [place] [address] 06/17/2018 13:41:17 06/17/2018 15:16:40 Active or passive immunization 314421267 Z23 Type 2 kan betes mellitus 09550958 E11.65 check BS daily Vitamin D deficiency 347 92301 E55.9 on OTC, nml level Depressive disorder 3548 9007 F32.89 stable Hyperlipidemia 09047102 E78.2 Harmful pa ttern of use of opioid 3076811 F11.10 consider tapering Essential hypertension 24913650 I10 [id number] Parag Roberts DO [facility] [address] [facility], [place] [address] 09/26/2018 13:51:41 09/26/2018 14:36:32 Hyperlipidemia 38135150 E78.5 has been off med for a week, ran out LDL 154, will restart and increase dose in addition to diet Type 2 kan betes mellitus 43796031 E11.65 slightly elevated at 7.2 work on diet improvemen t Essential hypertension 06468313 I10 very well controlled Depressive disorder 3548 9007 F33.9 well controlled on wb Vitamin D deficiency 347 17268 E55.9 improved from 11/2017 will recheck now that she is just a vitamin d + calcium supplement [id number] Parag Roberts DO [facility] [address] [facility] [address] 12/24/2018 14:19:02 12/24/2018 15:13:56 Hyperlipidemia 89018204 E78.5 cholestero l much better controlled with atorvastat in Type 2 kan betes mellitus 30501236 E11.65 a1c improved from 7.2 to 6.9 keep up with diet and exercise Essential hypertension 72782234 I10 very well controlled Depressive disorder 3548 9007 F33.9 not as well controlled , feels like she has days where she is more depresssed and then sometimes she bounces back interested in trying cymbalta Vitamin D deficiency 347 27943 E55.9 stuck at 28 despite treatment, will build stores and then return to calcium + d as we approach the winter [id number] Parag Roberts [facility] [address] [facility] [address] 03/11/2019 13:20:12 03/11/2019 14:00:01 Hyperlipidemia 45016088 E78.5 cholestero l much better controlled with atorvastat in Type 2 kan betes mellitus 07604480 E11.65 a1c up to 7.3 agrees to exercise more goal is to exercise 30 minutes 5 times per week Essential hypertension 22283823 I10 very well controlled Depressive disorder 3548 9007 F33.9 depression is ok will consider trying duloxetine again no further changes at this time Vitamin D deficiency 347 36135 E55.9 improved. continue rx and then otc when all done with [place] [id number] Parag Roberts DO [facility] [address] [facility] [address] [address] 05/29/2019 10:29:52 05/29/2019 11:29:55 Dysuria 93844100 R30.9 that pt is having UTI symptoms including dysuria, increased frequency and itching for the past week U/A is postive for nitrites, WBCs, and glucose will be placing the pt on Bactrim for five days Type 2 kan betes mellitus 89855257 E11.9 Pt will have recheck of A1c and BS before next appt [id number] Parag Roberts DO [facility] [address] [facility] [address] [address] 06/24/2019 13:34:17 07/06/2019 09:56:19 Depressive disorder 59749350 F33.9 depression is ok, worried about the current covid problem, but feels ok Type 2 kan betes mellitus 38464670 E11.65 a1c up to 8.7 very poor diet, not exercising determined to improve will defer med changes at this time f/u 3 months Hyperlipidemia 59641627 E78.5 cholestero [place] [id number] Parag Roberts [facility] [address] [facility] [address] [address] 08/25/2019 13:32:13 08/25/2019 15:23:13 Type 2 diabetes mellitus 25645332 E11.9 Pt will have recheck of A1c and BS before next appt work on diet and exercise hilda bw and if numbers are not down pt agrees on starting secondary medication for diabetes control Hyperlipidemia 49025140 E78.5 will stop atorvastat in and re check cmp Essential hypertension 61306892 I10 excellent [id number] Parag Roberts [facility] [address] [facility] [place] [address] 09/08/2019 14:02:36 09/08/2019 14:39:44 Right upper quadrant pain 623126923 R10.11 hepatic function came back still elevated, even more so even after stopping her atorvastat in still having the RUQ pain, will check her on US to see if its related to gallbladde r or liver [id number] Parag Roberts [facility] [address] [facility] [place] [address] 12/15/2019 13:38:06 12/15/2019 14:08:26 Depressive disorder 93460065 F32.9 stable Type 2 kan betes mellitus 07444585 E11.9 a1c is still the same will cut out breads and pastas, and reduce carbs the patient has been doing good otherwise with diet and cutting back on junk food will continue this and also cutting out pastas to see if it impacts the A1c Hyperlipidemia 26955411 E78.5 LFTs raised because of fatty liver not due to medication will start back on atrovastat in and monitor to make sure it is not any worse [id number] Parag Roberts DO [facility] [address] [facility] [address],[place] [address] 03/22/2020 10:07:31 03/22/2020 14:31:06 Essential hypertension 38862320 I10 excellent Type 2 kan betes mellitus 76424060 E11.9 a1c is still the same will cut out breads and pastas, and reduce carbs the patient has been doing good otherwise with diet and cutting back on junk food will continue this and also cutting out pastas to see if it impacts the A1c [id number] Parag Roberts DO [facility] [address] [facility] [address] [address] 06/21/2020 14:08:33 06/21/2020 16:29:26 Type 2 diabetes mellitus 82616295 E11.9 a1c higher will cut out breads and pastas, and reduce carbs the patient has been doing good otherwise with diet and cutting back on junk food will continue this and also cutting out pastas to see if it impacts the A1c Hyperlipidemia 44246183 E78.5 much improved will continue on medication and fish oil supplement Essential hypertension 49197389 I10 BP fine today, will continue to monitor Depressive disorder 3548 9007 F32.9 [place] [id number] Parag Roberts DO [facility] [address] [facility] [address],[place] [address] 09/26/2020 14:13:05 09/26/2020 14:25:08 Type 2 diabetes mellitus 66338158 E11.65 A1c much improved with diet Harmful pa ttern of use of opioid 6462186 F11.11 stable Depressive disorder 3548 9007 F33.9 stable today no interventi on Essential hypertension 68278434 I10 BP fine today, will continue to monitor Vitamin D below reference range 399707154 E55.9 will recheck vitamin D level [id number] Parag Roberts DO [facility] [address] [facility] [address],[place] [address] 01/31/2021 11:13:41 01/31/2021 11:54:58 Type 2 diabetes mellitus 46411909 E11.65 A1c much improved with diet Essential hypertension 79442475 I10 BP fine today, will continue to monitor [id number] Parag Roberts [facility] [address] [facility] [address] [address] 05/03/2021 08:16:45 05/08/2021 10:39:11 Type 2 diabetes mellitus 28764839 E11.65 A1c much improved with diet Harmful pa ttern of use of opioid 6360544 F11.11 stable Depressive disorder 3548 9007 F33.9 [place] [id number] Parag Roberts [facility] [address] [facility] [address] [address] 07/21/2021 14:45:29 07/24/2021 09:53:54 Dysuria 44900492 R30.0 that pt is having UTI symptoms including dysuria, increased frequency and itching for the past week will be placing the pt on Bactrim for 7 days [id number] Parag Roberts [facility] [address] [facility] [address] [address] 10/11/2021 14:18:17 10/11/2021 16:44:02 Type 2 diabetes mellitus 31189360 E11.65 A1c much improved with diet and trulicity Essential hypertension 94733583 I10 BP fine today, will continue to monitor [id number] Parag Roberts [facility] [address] [facility] [address] [address] 01/17/2022 14:01:49 01/19/2022 10:58:46 Type 2 diabetes mellitus 02651742 E11.65 A1c much improved with diet and trulicity Depressive disorder 3548 9007 F33.9 stable today no interventi on Hyperlipidemia 48790668 E78.5 much improved will continue on medication and fish oil supplement Essential hypertension 03855711 I10 BP fine today, will continue to monitor [id number] Parag Roberts [facility] [address] [facility] [address] [address] 04/18/2022 14:01:40 04/18/2022 14:44:53 Type 2 diabetes mellitus 82483023 E11.65 pretty stable since last checkonly up to 7.2% Depressive disorder 3548 9007 F33.9 stable today no interventi on Essential hypertension 98096876 I10 BP fine today, will continue to monitorrec heck was 132/72 [id number] Parag Roberts [facility] [address] [facility] [address] 07/06/2022 14:09:13 07/06/2022 15:22:46 Type 2 diabetes mellitus 40512923 E11.65 improved to 6.9% which is excellent results Depressive disorder 3548 9007 F33.9 stable today no interventi on Harmful pa ttern of use of opioid 1009369 F11.11 stablestab le for years [id number] Parag Roberts DO [facility] [address] [facility] [address] 10/09/2022 14:08:36 10/09/2022 16:21:26 Depressive disorder 01382935 F33.9 stable today no interventi on Essential hypertension 42142506 I10 BP fine today, will continue to monitorrec heck was 132/72 Hyperlipidemia 51815591 E78.2 much improved will continue on medication and fish oil supplement Type 2 kan betes mellitus 87597992 E11.65 up to 7.2%relate d to the holidaysis carissawihoward drop down again when she tightens up her diet [id number] Parag Roberts DO [facility] [address] [facility],[place] [address] 01/16/2023 13:19:12 01/16/2023 15:17:27 Dysuria 80090224 R30.0 will give urine on fri Type 2 kan betes mellitus 34677979 E11.65 up to 7.2%work on dietwas doing well at 6.9 [id number] Parag Roberts DO [facility] [address] [facility] [address] [address] 04/10/2023 08:02:17 04/10/2023 16:35:22 Type 2 diabetes mellitus 08869682 E11.65 up to 7.8%had COVID-19 which also contribute to higher sugar levelswork on diet and fu with test in 3 mos, if still elevated we discussed with patient about upping the trulicity which she is amendable to Vitamin D deficiency 347 87425 E55.9 excellent numbers [id number] Parag Roberts [facility] [address] [facility] [address] [address] 10/22/2023 14:15:30 10/23/2023 10:05:04 Depression screening 454128984 Z13.31 negative Depressive disorder 3548 9007 F33.9 stable today no interventi on Harmful pa ttern of use of opioid 5360150 F11.11 stablestab le for years Essential hypertension 45559625 I10 BP is excellent Hyperlipidemia 67607192 E78.2 stable Type 2 kan betes mellitus 50468247 E11.65 needs standing Vitamin D deficiency 347 23929 E55.9 excellent numbers [id number] Parag Roberts, [facility] [address] [facility] [address] 01/27/2024 15:12:58 01/27/2024 16:01:32 Depressive disorder 73244394 F33.9 stable today no interventi on Essential hypertension 39286225 I10 BP is excellent Type 2 kan betes mellitus 08667012 E11.65 needs standing [id number] Parag Roberts [facility] [address] [facility] [address] [address] 05/01/2024 15:46:54 05/01/2024 16:06:53 Essential hypertension 28702037 I10 BP is excellent Type 2 kan betes mellitus 30271704 E11.65 needs standing Depressive disorder 3548 9007 F33.9 stable today no interventi on Health Concerns Section Related Observation LastModified by Organization Detai ls LastModified Time None Recorded Concern Status LastModified by Organization Details LastModified Time None Recorded Advance Directives Directive None Recorded Payers Encounter Date Sequence Insurance Name Policy Number Policy Samuels Covered Member ID Samuels Member ID Guarantor Name 01/16/2023 1 [facility] - DOS ON OR AFTER 2022 - RESIDENTIAL OPTIONS AND ONE CARE (MEDICARE REPLACEMENT/ADV ANTAGE - PPO) Rashmi Napoles Damaris [id number] Rashmi Napoles Damaris 04/10/2023 1 [facility] [employer] - DOS ON OR AFTER 2022 - RESIDENTIAL OPTIONS AND ONE CARE (MEDICARE REPLACEMENT/ADV ANTAGE - PPO) Rashmi Napoles Damaris [id number] Rashmi Napoles Damaris 10/22/2023 1 [facility] [employer] - DOS ON OR AFTER 2022 - RESIDENTIAL OPTIONS AND ONE CARE (MEDICARE REPLACEMENT/ADV ANTAGE - PPO) Rashmi Napoles Damaris [id number] Rashmi Napoles Damaris 01/27/2024 1 [facility] [employer] - DOS ON OR AFTER 2022 - RESIDENTIAL OPTIONS AND ONE CARE (MEDICARE REPLACEMENT/ADV ANTAGE - PPO) Rashmi Napoles Damaris [id number] Rashmi Napoles Damaris 05/01/2024 1 [facility] [employer] - DOS ON OR AFTER 2022 - RESIDENTIAL OPTIONS AND ONE CARE (MEDICARE REPLACEMENT/ADV ANTAGE - PPO) Rashmi Napoles Damaris [id number] Rashmi Napoles Damaris Notes Date Note Type Note Provider Name a nd Address Organization Details Recorded Time 3 text/html 3 mos fu urinary frequency: could be urinary incontinence/overactiv e bladderher sugar is up to 7.2% from 6.9 notes her diet has been poorknows what she should avoidwill work on thatno issues with meds having urinary frequencycould be the sugar too but agreed to urinalysis just in case VICKY HENRY [address] [facility], [place], [address], [facility] 01/16/2023 14:02:52 4 text/html f/u 3 mos The patient is participating in this appointment via telemedicine communication with a phone call/video calling service (Doxy)The patient consents to use of these platforms [...] no other concerns today VICKY HENRY [address] [place], [id number], [facility] 04/10/2023 15:40:33 4 text/html f/u appt depression [...] re-ordered vitamin D: stable VICKY HENRY [address] [place], [id number], [facility] 10/22/2023 14:59:54 4 text/html [...] patient after her lab-work VICKY HENRY [address] [place], [id number], [facility] 01/27/2024 15:43:13 5 text/html f/u medication check/a1c T2DM: Patient presents today for follow-up for Type 2 Diabetes Recent lab showed an A1c of 7.9% the patient is down to 194 lbs The patient has been compliant with medications as prescribedThe complications patient is experiencing are nothing significant per patient, feet and eyes feel fineThe patient has current concerns about related to their diabetes diagnosisThe patient has been compliant with lifestyle changes including dietary changes, exercise and healthy habits Discussion about feet reveals normal examDiscussion about eyes reveals normal exam per patient f/u Treatment plan going forward is dietary changes, needs to drop back downusually corrects with diet and exercise VICKY HENRY [address] [place] [address], [place], [phone], [facility] 05/01/2024 16:00:09 OBGyn Episode No OBEpisode recorded.
[2024-07-29 15:04] LABS: Vitamin D 25-OH Total 37.5 ng/mL (>30)
== END 2024-07-29 13:33 | disposition home or self-care (01) ==
LOC: HO.LABR 13:32
PROVIDERS: PCP Internal Medicine; Visit Provider Physician Assistant
DX: E78.2 Mixed hyperlipidemia (principal); E55.9 Vitamin D deficiency, unspecified; E11.65 Type 2 diabetes mellitus with hyperglycemia
CPT/HCPCS: 36415; 80053; 80061; 82306; 83036; 85025

== ENCOUNTER 2024-11-17 12:53 | Outpatient (REF) | payer OTHER, SELFPAY ==
[2024-11-17 13:14] LABS: MANUAL DIFF FLAG NO
[2024-11-17 13:35] LABS: Hematocrit 39.7 % (37.0-47.0); Hemoglobin 13.9 g/dl (12.0-16.0); Imm Gran Abs Auto 0.01 X10*3/uL (0.00-0.03); Imm Gran Pct Auto 0.1 % (0.0-0.4); Lymphocytes Absolute Auto 2.9 X10*3/uL (1.2-4.9); Mean Corpuscular HGB Conc 35.0 g/dl (31.0-35.0); Mean Corpuscular Hemoglobin 28.4 pg (27.0-33.0); Mean Corpuscular Volume 81.2 fL (80.0-98.0); NRBC Abs Auto 0.000 X10*3/uL (0.0-0.012); NRBC Pct Auto 0.0 /100WBC (0.0-0.2); Platelet Count 221 X10*3/uL (160-400); Red Blood Count 4.89 X10*6/uL (4.20-5.50); White Blood Count 7.5 X10*3/uL (4.8-10.8)
[2024-11-17 13:46] LABS: Hemoglobin A1C 223.8785 umol/L; Total Hemoglobin (HGBA1C) 3521.1484 umol/L
--- OUTSIDE RECORDS SUMMARY | 2024-11-17 14:04 | XMS_ITS | Encounter Summary ---
Author Organization [facility] Address [address] [place] [phone] Phone Care Team Providers Care Steam Service Inspector Name Role Phone Unavailable Primary Care Provider Unavailabl e Encounter Details Date Type Department Care Team (Late st Contact Info) Description 10/05/2022 Transcribe Orders Virtual Department [address] [place] [address] Nicol Leone PA [address] [place] [address] [place] [address] Social History Tobacco Use Types Packs/Day Years Used Date Smoking Tobacco: Never Assessed Comments Unknown Sex and Gender Information Value Date Recorded Sex Assigned at Not on file Legal Sex Female 10:01 PM EDT Gender Identity Not on file Sexual Orientation Not on file documented as of this encounter Plan of Treatment Not on file documented as of this encounter Visit Diagnoses Not on filedocumented in this encounter Additional Source Comments The information contained in this document represents components of the legal health record. It is not the complete legal health record.[facility]
[2024-11-17 14:15] LABS: Alanine Aminotransferase 37 U/L (0-31); Albumin Level 4.2 g/dL (3.5-5.0); Alkaline Phosphatase 161 U/L (39-117); Anion Gap 13 (12-20); Aspartate Amino Transferase 32 U/L (5-31); Blood Urea Nitrogen 16 mg/dL (9-16); Calcium 9.2 mg/dL (8.4-10.2); Carbon Dioxide 26 mmol/L (22-29); Chloride 104 mmol/L (96-108); Cholesterol 230 mg/dL (<200); Estimated Glomerular Filt Rate > 60; HDL Cholesterol 46 mg/dL (>40); Potassium 4.1 mmol/L (3.3-5.1); Sodium 139 mmol/L (135-145); Total Protein 6.9 g/dL (6.5-8.0); Triglycerides 170 mg/dL (<150)
== END 2024-11-17 12:54 | disposition home or self-care (01) ==
LOC: HO.LABR 12:53
PROVIDERS: PCP Internal Medicine; Visit Provider Physician Assistant
DX: E11.65 Type 2 diabetes mellitus with hyperglycemia (principal); E78.2 Mixed hyperlipidemia; E55.9 Vitamin D deficiency, unspecified
CPT/HCPCS: 36415; 80053; 80061; 82306; 83036; 85025

== ENCOUNTER 2025-02-19 13:20 | Outpatient (REF) | payer OTHER, SELFPAY ==
[2025-02-19 13:37] LABS: MANUAL DIFF FLAG NO
--- OUTSIDE RECORDS SUMMARY | 2025-02-19 13:44 | XMS_ITS | Data Portability ---
Author Organization [facility], Telehealth Patient Home Address [address] [place] [address] Assessment No assessment recorded. Plan of Treatment Reminders Order Date Submit Date Provider Last Modified By Organization Details Last Modified Time Details Appointments FOLLOW UP 15 2024 02:15P VICKY ROMAN Not available Not available Not available Lab CMP, serum or plasma 2024 025 [facility], [address] [place] [address], [id number], 07/30/2024 13:08:10 HbA1c (hemoglob in A1c), blood 2024 025 [facility], [address] [place] [address], [id number], 05/01/2024 16:05:33 CBC w/ auto diff 2024 025 [facility], [address] [place] [address], [id number], 05/01/2024 16:05:34 hemoglobi n A1c, QN, blood 2024 025 [facility], [address] [place] [address], [id number], 05/01/2024 16:05:34 CMP, serum or plasma 2024 025 [facility], [address] [place] [address], [id number], 11/18/2024 12:35:42 CMP, serum or plasma 2024 025 [facility], [address] [place] [address], [id number], 11/18/2024 12:35:42 vitamin D, 25-hydrox y, total, serum 2023 024 [facility], [address] [place] [address], [address], 10/22/2023 14:57:03 HbA1c (hemoglob in A1c), blood 2023 024 [facility], [address] [place] [address], [id number], 10/22/2023 14:57:03 CMP, serum or plasma 2023 024 [facility], [address] [place] [address], [id number], 10/22/2023 14:57:03 lipid panel, serum 2023 024 [facility], [address] [place] [address], [id number], 10/22/2023 14:57:03 CBC w/ auto diff 2023 024 [facility], [address] [place] [address], [id number], 10/22/2023 14:57:03 Referral None recorded. 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 Ariadna Bucko null, [facility] 9 13:28:39 Menopaus e [facility] 13:28:[facility] Type 2 diabetes mellitus 51764519 Active 2017 [facility] 13:28:39 [facility] hyperten quinn 36887854 Active 2017 [facility] 9 13:28:39 Hyperlip idemia 51660766 Active 2017 [facility] 13:28:39 Osteopor osis 02192992 Active 2017 [facility] 9 13:28:39 Depressi ve disorder 47741935 Active 2017 Ariadna Jose [facility] 9 13:28:39 Vitamin D deficien cy 52577861 Active 2017 Ariadnavaughn Garcia [facility] 9 13:28:39 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 Medical Equipment None [...] ne 8 mg-naloxone 2 mg sublingual film 1 FLIM SUBLINGUA L EVERY DAY active Not Available Not Available No t Available magnesium 400 mg (as magnesium oxide) capsule Take 1 capsule every day by oral route. active Not Available Not Available No t Available Trulicity 0.75 mg/0.5 mL subcutaneou s pen injector INJECT 0.5 ML SUBCUTANE OUSLY WEEKLY 2024 active Not Available Not Available Not Avai lable Fluzone High-Dose (PF) 180 mcg/0.5 mL intramuscul ar syringe 05/29 completed Not Available Not Available Not Available Afluria Qd (36 mos up)(PF)60 mcg (15 mcg x4)/0.5 mL IM syringe ADM 0.5ML IM UTD 06/21 completed Not Available Not Available Not Available Ozempic 0.25 mg or 0.5 mg (2 mg/3 mL) subcutaneou s pen injector inject 0.5mg weekly with sq pen 11/18 completed Not Available Not Available Not Available Vitals Date Recorded Body height Body mass index (BMI) Body weight Heart rate Oxygen saturation Systolic And Diastolic Provider Name and Address Organization Details Last Updated DateTime 5 167.64 cm 31.4 kg/m2 69522.7 9 g 78 /min 96 % 138/64 mm[Hg] Loni Esteves [facility] 5 15:51:42 Date Recorded Body height Body mass index (BMI) Body weight Heart rate Oxygen saturation Systolic And Diastolic Provider Name and Address Organization Details Last Updated DateTime 5 167.64 cm 31.5 kg/m2 59726.2 3 g 83 /min 94 % 142/88 mm[Hg] Loni Esteves [facility] 5 15:49:37 Date Recorded Body height Body mass index (BMI) Body weight Heart rate Oxygen saturation Systolic And Diastolic Provider Name and Address Organization Details Last Updated DateTime 4 167.64 cm 31.5 kg/m2 86961.5 1 g 66 /min 97 % 126/76 mm[Hg] Gerardo Robbins [facility] 4 14:26:29 Date Recorded Body height Body mass index (BMI) Body weight Heart rate Oxygen saturation Systolic And Diastolic Provider Name and Address Organization Details Last Updated DateTime 5 167.64 cm 32 kg/m2 73474.3 7 g 72 /min 97 % 146/74 mm[Hg] Loni Esteves [facility] 5 16:06:29 Date Recorded Body height Body mass index (BMI) Body weight Heart rate Oxygen saturation Systolic And Diastolic Provider Name and Address Organization Details Last Updated DateTime 4 167.64 cm 31.5 kg/m2 03052.5 1 g 68 /min 97 % 128/78 mm[Hg] Loni Esteves [facility] 4 15:18:30 Social History Question Answer Notes LastModified by Organizat ion Details LastModified Time Tobacco Smoking Status Former Smoker Not Available [facility] 02/02/2020 03:36:23 What Was The Date Of Your Most Recent Tobacco Screening? 11/18/2024 [email or web address] Information not available 11/18/2024 How Many Years Have You Smoked Tobacco? 35 [id number] Information not available 02/02/2020 Sex: Unknown Functional [...] 50 mcg/0.25mL dose 1 completed Juanita zamudio [facility] 01/17/2022 08:16:32 COVID-19, mRNA, LNP-S, PF, 30 mcg/0.3 mL dose 2 completed Juanita zamudio [facility] 01/17/2022 08:16:46 COVID-19, mRNA, LNP-S, PF, 100 mcg/0.5mL dose or 50 mcg/0.25mL dose 2 completed Juanita zamudio [facility] 01/17/2022 08:16:58 Influenza, split virus, quadrivalent, preservative 1 completed Juanita zamudio [facility] 01/17/2022 08:17:19 pneumococcal polysaccharide PPV23 1 completed Juanita zamudio [facility] 01/17/2022 08:17:40 influenza, unspecified formulation 2 completed Juanita zamudio [facility] 04/18/2022 08:14:20 Influenza, split virus, quadrivalent, preservative 9 completed Ariadna Jose zamudio [facility] 03/11/2019 13:28:44 Pneumococcal conjugate PCV 13 0 completed Hazel zamudio [facility] 09/20/2020 09:34:38 COVID-19, mRNA, LNP-S, PF, 30 mcg/0.3 mL dose 1 completed Hazel zamudio [facility] 09/20/2020 09:34:53 COVID-19, mRNA, LNP-S, PF, 30 mcg/0.3 mL dose 1 completed Hazel zamudio [facility] 09/20/2020 09:35:00 Past Encounters Encounter ID Performer Location Encounter Start Date Encounter Closed Date Diagnosis/Indication Diagnosis SNOMED-CT Code Diagnosis ICD10 Code Diagnosis IMO Codes Diagnosis Note [id number] Parag Roberts [facility] [address] [address] 09/04/2017 13:59:06 09/04/2017 15:43:16 Type 2 diabetes mellitus 51623246 E11.65 going to work diet, eliminate ice cream Essential hypertension 61384048 I10 good control Osteoporosis 76844002 M8 1.0 on calcium, will add rx for vitamin d as she is insufficie nt emphasized importance of weight bearing exercise Depressive disorder 3548 5507 F33.9 continue bupropion Vitamin D deficiency 347 79745 E55.9 Hyperlipidemia 78030703 E78.5 will start atorvastat in as well [id number] Parag Roberts [facility] [address] [facility],[place] [address] 12/11/2017 13:26:57 12/11/2017 14:04:47 Type 2 diabetes mellitus 36301837 E11.65 well controlled praised and encouraged to continue Essential hypertension 04566465 I10 good control Osteoporosis 32471594 M8 1.0 on both calcium and vitamin d emphasized importance of weight bearing exercise Depressive disorder 3541 9007 F33.9 continue bupropion Vitamin D deficiency 347 72110 E55.9 Hyperlipidemia 03718881 E78.5 well controlled on atorvastat in Screening procedure 2012 5006 Z13.9 [id number] Parag Roberts DO [facility] [address],[place] [address] 03/18/2018 13:44:56 03/18/2018 16:46:30 Adult health examination 618411349 Z00.00 reviewed hcp Screening for cardiovascular system disease 879817884 Z13.6 utd and well controlled Screening for malignant neoplasm of colon 337546578 Z12.11 cologuard done 04/2016 will repeat 2020 refuses colonoscop y Screening for osteoporosis 468120006 Z13.820 bmd done 03/2017 Screening mammography 24 655727 Z12.31 mammo done 01/28/18 Screening for malignant neoplasm of cervix 091942303 Z12.4 had TAHBSO no longer requires pap Active or passive immunization 013268694 Z23 Body mass index 30+ - obesity 745928940 Z68.32 healthy diet and exercise Type 2 kna betes mellitus 33307811 E11.65 well controlled at 6.9 praised and encouraged to continue [id number] Suzanne Medrano NP, S [facility] [address],[place] [address] 06/17/2018 13:41:17 06/17/2018 15:16:40 Active or passive immunization 369681094 Z23 Type 2 kan betes mellitus 65648467 E11.65 check BS daily Vitamin D deficiency 347 95485 E55.9 on OTC, nml level Depressive disorder 3548 9007 F32.89 stable Hyperlipidemia 18292204 E78.2 Harmful pa ttern of use of opioid 8706549 F11.10 consider tapering Essential hypertension 36374896 I10 [id number] Parag Roberts DO [facility] [address],[place] [address] 09/26/2018 13:51:41 09/26/2018 14:36:32 Hyperlipidemia 88456336 E78.5 has been off med for a week, ran out LDL 154, will restart and increase dose in addition to diet Type 2 kan betes mellitus 18409579 E11.65 slightly elevated at 7.2 work on diet improvemen t Essential hypertension 03584446 I10 very well controlled Depressive disorder 3548 9007 F33.9 well controlled on wb Vitamin D deficiency 347 99306 E55.9 improved from 11/2017 will recheck now that she is just a vitamin d + calcium supplement [id number] Parag Roberts DO [facility] [address] [facility] [address] [place] [address] 12/24/2018 14:19:02 12/24/2018 15:13:56 Hyperlipidemia 54443066 E78.5 cholestero l much better controlled with atorvastat in Type 2 kan betes mellitus 30726796 E11.65 a1c improved from 7.2 to 6.9 keep up with diet and exercise Essential hypertension 61681969 I10 very well controlled Depressive disorder 3540 9007 F33.9 not as well controlled , feels like she has days where she is more depresssed and then sometimes she bounces back interested in trying cymbalta Vitamin D deficiency 347 14861 E55.9 stuck at 28 despite treatment, will build stores and then return to calcium + d as we approach the winter [id number] Parag Roberts DO [facility] [address] [facility] [address] [place] [address] 03/11/2019 13:20:12 03/11/2019 14:00:01 Hyperlipidemia 25876866 E78.5 cholestero l much better controlled with atorvastat in Type 2 kan betes mellitus 94345132 E11.65 a1c up to 7.3 agrees to exercise more goal is to exercise 30 minutes 5 times per week Essential hypertension 95294229 I10 very well controlled Depressive disorder 3548 9007 F33.9 depression is ok will consider trying duloxetine again no further changes at this time Vitamin D deficiency 347 57520 E55.9 improved. continue rx and then otc when all done [place] rx [id number] Parag Roberts DO [facility] [address] [facility] [address] [place] [address] 05/29/2019 10:29:52 05/29/2019 11:29:55 Dysuria 72465555 R30.9 that pt is having UTI symptoms including dysuria, increased frequency and itching for the past week U/A is postive for nitrites, WBCs, and glucose will be placing the pt on Bactrim for five days Type 2 kan betes mellitus 51776318 E11.9 Pt will have recheck of A1c and BS before next appt [id number] Parag Roberts [facility] [address] [facility] [address] 06/24/2019 13:34:17 07/06/2019 09:56:19 Depressive disorder 26982091 F33.9 depression is ok, worried about the current covid problem, but feels ok Type 2 kan betes mellitus 85750310 E11.65 a1c up to 8.7 very poor diet, not exercising determined to improve will defer med changes at this time f/u 3 months Hyperlipidemia 08290007 E78.5 cholestero [place] [id number] Parag Roberts [facility] [address] [facility] [address] 08/25/2019 13:32:13 08/25/2019 15:23:13 Type 2 diabetes mellitus 10400100 E11.9 Pt will have recheck of A1c and BS before next appt work on diet and exercise hilda bw and if numbers are not down pt agrees on starting secondary medication for diabetes control Hyperlipidemia 24315119 E78.5 will stop atorvastat in and re check cmp Essential hypertension 60462017 I10 excellent [id number] Parag Roberts [facility] [address] [facility] [address] 09/08/2019 14:02:36 09/08/2019 14:39:44 Right upper quadrant pain 277869644 R10.11 hepatic function came back still elevated, even more so even after stopping her atorvastat in still having the RUQ pain, will check her on US to see if its related to gallbladde r or liver [id number] Parag Roberts [facility] [address] [facility] [address] 12/15/2019 13:38:06 12/15/2019 14:08:26 Depressive disorder 32980867 F32.9 stable Type 2 kan betes mellitus 64485335 E11.9 a1c is still the same will cut out breads and pastas, and reduce carbs the patient has been doing good otherwise with diet and cutting back on junk food will continue this and also cutting out pastas to see if it impacts the A1c Hyperlipidemia 79399058 E78.5 LFTs raised because of fatty liver not due to medication will start back on atrovastat in and monitor to make sure it is not any worse [id number] Parag Roberts DO [facility] [address] [facility] [place] [address] 03/22/2020 10:07:31 03/22/2020 14:31:06 Essential hypertension 47607629 I10 excellent Type 2 kan betes mellitus 67168907 E11.9 a1c is still the same will cut out breads and pastas, and reduce carbs the patient has been doing good otherwise with diet and cutting back on junk food will continue this and also cutting out pastas to see if it impacts the A1c [id number] Parag Roberts DO [facility] [address] [facility] [address] [place] [address] 06/21/2020 14:08:33 06/21/2020 16:29:26 Type 2 diabetes mellitus 65815324 E11.9 a1c higher will cut out breads and pastas, and reduce carbs the patient has been doing good otherwise with diet and cutting back on junk food will continue this and also cutting out pastas to see if it impacts the A1c Hyperlipidemia 41826342 E78.5 much improved will continue on medication and fish oil supplement Essential hypertension 45206593 I10 BP fine today, will continue to monitor Depressive disorder 3548 9007 F32.9 [place] [id number] Parag Roberts [facility] [address] [facility] [address] [place] [address] 09/26/2020 14:13:05 09/26/2020 14:25:08 Type 2 diabetes mellitus 26315459 E11.65 A1c much improved with diet Harmful pa ttern of use of opioid 3908195 F11.11 stable Depressive disorder 3548 9007 F33.9 stable today no interventi on Essential hypertension 17330890 I10 BP fine today, will continue to monitor Vitamin D below reference range 361972461 E55.9 will recheck vitamin D level [id number] Parag Roberts [facility] [address] [facility] [address] [place] [address] 01/31/2021 11:13:41 01/31/2021 11:54:58 Type 2 diabetes mellitus 82171692 E11.65 A1c much improved with diet Essential hypertension 73875650 I10 BP fine today, will continue to monitor [id number] Parag Cardenas Armando [facility] [address] [facility] [address] [place] [address] 05/03/2021 08:16:45 05/08/2021 10:39:11 Type 2 diabetes mellitus 85840354 E11.65 A1c much improved with diet Harmful pa ttern of use of opioid 6526620 F11.11 stable Depressive disorder 3548 9007 F33.9 [place] [id number] Parag Cardenas Armando [facility] [address] [facility] [address] [place] [address] 07/21/2021 14:45:29 07/24/2021 09:53:54 Dysuria 40182206 R30.0 that pt is having UTI symptoms including dysuria, increased frequency and itching for the past week will be placing the pt on Bactrim for 7 days [id number] Parag Ronald Roberts [facility] [address] [facility] [address] [place] [address] 10/11/2021 14:18:17 10/11/2021 16:44:02 Type 2 diabetes mellitus 28665395 E11.65 A1c much improved with diet and trulicity Essential hypertension 36721620 I10 BP fine today, will continue to monitor [id number] Parag NapolesTelma Roberts [facility] [address] [facility] [address] [place] [address] 01/17/2022 14:01:49 01/19/2022 10:58:46 Type 2 diabetes mellitus 99145191 E11.65 A1c much improved with diet and trulicity Depressive disorder 3548 9007 F33.9 stable today no interventi on Hyperlipidemia 24865910 E78.5 much improved will continue on medication and fish oil supplement Essential hypertension 18617261 I10 BP fine today, will continue to monitor [id number] Parag Roberts [facility] [address] [facility] [address] [place] [address] 04/18/2022 14:01:40 04/18/2022 14:44:53 Type 2 diabetes mellitus 31902516 E11.65 pretty stable since last checkonly up to 7.2% Depressive disorder 3548 9007 F33.9 stable today no interventi on Essential hypertension 05250209 I10 BP fine today, will continue to monitorrec heck was 132/72 [id number] Parag Roberts [facility] [address] [facility] [address] [place] [address] 07/06/2022 14:09:13 07/06/2022 15:22:46 Type 2 diabetes mellitus 26196922 E11.65 improved to 6.9% which is excellent results Depressive disorder 3548 9007 F33.9 stable today no interventi on Harmful pa ttern of use of opioid 6936336 F11.11 stablestab le for years [id number] Parag Roberts [facility] [address] [facility] [address] [place] [address] 10/09/2022 14:08:36 10/09/2022 16:21:26 Depressive disorder 99898720 F33.9 stable today no interventi on Essential hypertension 59243265 I10 BP fine today, will continue to monitorrec heck was 132/72 Hyperlipidemia 71505592 E78.2 much improved will continue on medication and fish oil supplement Type 2 kan betes mellitus 22658697 E11.65 up to 7.2%relate d to the holidaysis carissawill drop down again when she tightens up her diet [id number] Parag Roberts [facility] [address] [facility] [address] [address] 01/16/2023 13:19:12 01/16/2023 15:17:27 Dysuria 59704651 R30.0 will give urine on fri Type 2 kan betes mellitus 93265168 E11.65 up to 7.2%work on dietwas doing well at 6.9 [id number] Parag Roberts [facility] [address] [facility] [address] 04/10/2023 08:02:17 04/10/2023 16:35:22 Type 2 diabetes mellitus 16040753 E11.65 up to 7.8%had COVID-19 which also contribute to higher sugar levelswork on diet and fu with test in 3 mos, if still elevated we discussed with patient about upping the trulicity which she is amendable to Vitamin D deficiency 347 25473 E55.9 excellent numbers [id number] Parag Roberts [facility] [address] [facility] [address] 10/22/2023 14:15:30 10/23/2023 10:05:04 Depression screening 022905034 Z13.31 negative Depressive disorder 3548 9007 F33.9 stable today no interventi on Harmful pa ttern of use of opioid 4100503 F11.11 stablestab le for years Essential hypertension 35204473 I10 BP is excellent Hyperlipidemia 40177669 E78.2 stable Type 2 kan betes mellitus 35200117 E11.65 needs standing Vitamin D deficiency 347 53186 E55.9 excellent numbers [id number] Parag Roberts [facility] [address] [facility] [address] 01/27/2024 15:12:58 01/27/2024 16:01:32 Depressive disorder 90189038 F33.9 stable today no interventi on Essential hypertension 81319304 I10 BP is excellent Type 2 kan betes mellitus 63396689 E11.65 needs standing [id number] Parag Roberts [facility] [address] [facility] [address] [place] [address] 05/01/2024 15:46:54 05/01/2024 16:06:53 Essential hypertension 27434152 I10 BP is excellent Type 2 kan betes mellitus 16977469 E11.65 needs standing Depressive disorder 3548 9007 F33.9 stable today no interventi on [id number] Parag Roberts [facility] [address] [facility] [address],[place] [facility] [place] [address] 07/31/2024 15:43:12 07/31/2024 16:24:16 Depression screening 659757824 Z13.31 negative Type 2 kan betes mellitus 97667064 E11.65 needs standing Harmful pa ttern of use of opioid 9548410 F11.11 has been in remission for years [id number] Parag Cardenas Emiloscar [facility] [address] [facility] [address],[place] [address] 11/18/2024 15:47:43 11/18/2024 16:55:55 Depression screening 959427784 Z13.31 negative Essential hypertension 42860156 I10 BP is stable at homekeeps track of her numbers Hyperlipidemia 15704697 E78.2 stable Health Concerns Section Related Observation LastModified by Organization Detai ls LastModified Time None Recorded Concern Status LastModified by Organization Details LastModified Time None Recorded Advance Directives Directive None Recorded Payers Insurance Date Sequence Insurance Name Policy Number Policy Samuels Covered Member ID Samuels Member ID Guarantor Name 01/27/2024 1 [place] [employer] [employer] Rashmi Ocampo [id number] Rashmi Ocampo 01/27/2024 1 [employer] [facility] [employer] - DOS PRIOR TO 2022 - DUAL ELIGIBLE (MEDICARE REPLACEMENT/ADV ANTAGE - HMO) Rashmi Ocampo [id number] Rashmi Ocampo 01/27/2024 2 [place] [employer] Rashmi Ocampo [id number] Rashmi Ocampo 02/19/2025 1 [employer] [facility] [employer] - DOS ON OR AFTER 2022 - PRISON OPTIONS AND ONE CARE (MEDICARE REPLACEMENT/ADV ANTAGE - PPO) Rashmi Ocampo [id number] Rashmi Ocampo Notes Date Note Type Note Provider Name a nd Address Organization Details Recorded Time 4 text/html ROS as noted in the HPI f/u appt depression screening: The patient denies [...] re-ordered vitamin D: stable VICKY HENRY [address] [place], [address], [facility] 10/22/2023 14:59:54 4 text/html ROS as noted in the HPI medication f/u the patient reports that she [...] patient after her lab-work VICKY HENRY [address] [place], [address], [facility] 01/27/2024 15:43:13 5 text/html ROS as noted in the HPI f/u medication check/a1c T2DM: Patient presents today [...] back downusually corrects with diet and exercise VIKCY HENRY [address] [place], [id number], [facility] Internal [facility] 05/01/2024 16:00:09 5 text/html ROS as noted in the HPI 3 mos f/u Patient presents today for follow-up for Type 2 Diabetes Recent lab showed an A1c of 7.4%, down 7.8%the patient is feeling okay The patient has been compliant with medicationsThe denies complications at this timeThe patient has current concerns about related to their diabetes diagnosis glucose control, working on diet, has been stable on theThe patient has been compliant with lifestyle changes including dietary changes, exercise and healthy habits Discussion about feet reveals normal examDiscussion about eyes reveal normal exam Treatment plan going forward is cont on meds, cont with dietary restrictions depression screening: The patient denies little pleasure [...] further investigation and treatment for mental health. VICKY HENRY [address] [place] [address], [id number], [facility] Internal Medicine 07/31/2024 16:14:25 5 text/html ROS as noted in the HPI T2DM: Patient presents today for follow-up for Type 2 Diabetes Recent lab showed an A1c of 8% The patient has been compliant with medicationsThe complications patient is experiencing areThe patient has current concerns about related to their diabetes diagnosisThe patient has been compliant with lifestyle changes including dietary changes, exercise and healthy habits Discussion about feet reveals normalDiscussion about eyes reveal normal Treatment plan going forward is increasing trulicity vs dietary changesbut she knows her problem, eats a lot of cheese danishes with a client depression screening: The patient denies little pleasure [...] further investigation and treatment for mental health. fall risk: The patient denies recent falls or recurrent [...] concerns were answered to the patient's satisfaction. VICKY HENRY [address] [place] [address], [place], [phone], [facility] 11/18/2024 16:40:51 OBGyn Episode No OBEpisode recorded.
--- OUTSIDE RECORDS SUMMARY | 2025-02-19 13:44 | XMS_ITS | Encounter Summary ---
Author Organization [facility] Address [address] [place] [phone] Phone Care Team Providers Care Bilingual Secretary Name Role Phone Unavailable Primary Care Provider Unavailabl e Encounter Details Date Type Department Care Team (Late st Contact Info) Description 10/05/2022 Transcribe Orders Virtual Department [address] [place] [address] Nicol Leone PA [address] [place] [address] [place] [address] Social History Tobacco Use Types Packs/Day Years [...] It is not the complete legal health record.[facility]
--- OUTSIDE RECORDS SUMMARY | 2025-02-19 13:44 | XMS_ITS | Clinical Summary ---
Author Organization [facility] Address [address] [phone] Phone Care Team Providers Care Rural Mail Contractor Name Role Phone Unavailable Primary Care Provider Unavailabl e Social History Tobacco Use Types Packs/Day Years Used Date Smoking Tobacco: Never Assessed Comments Unknown Sex and Gender Information Value Date Recorded Sex Assigned at Not on file Legal Sex Female 10:01 PM EDT Gender Identity Not on file Sexual Orientation Not on file Plan of Treatment Not on file Medical Devices Not on file Additional Source Comments The information contained in this document represents components of the legal health record. It is not the complete legal health record.[facility]
[2025-02-19 14:47] LABS: Hematocrit 39.7 % (37.0-47.0); Hemoglobin 13.8 g/dl (12.0-16.0); Imm Gran Abs Auto 0.02 X10*3/uL (0.00-0.03); Imm Gran Pct Auto 0.3 % (0.0-0.4); Lymphocytes Absolute Auto 2.8 X10*3/uL (1.2-4.9); Mean Corpuscular HGB Conc 34.8 g/dl (31.0-35.0); Mean Corpuscular Hemoglobin 28.2 pg (27.0-33.0); Mean Corpuscular Volume 81.0 fL (80.0-98.0); NRBC Abs Auto 0.000 X10*3/uL (0.0-0.012); NRBC Pct Auto 0.0 /100WBC (0.0-0.2); Platelet Count 212 X10*3/uL (160-400); Red Blood Count 4.90 X10*6/uL (4.20-5.50); White Blood Count 6.4 X10*3/uL (4.8-10.8)
[2025-02-19 15:15] LABS: Alanine Aminotransferase 43 U/L (0-31); Albumin Level 4.4 g/dL (3.5-5.0); Alkaline Phosphatase 165 U/L (39-117); Anion Gap 12 (12-20); Aspartate Amino Transferase 44 U/L (5-31); Blood Urea Nitrogen 18 mg/dL (9-16); Calcium 9.6 mg/dL (8.4-10.2); Carbon Dioxide 26 mmol/L (22-29); Chloride 104 mmol/L (96-108); Cholesterol 241 mg/dL (<200); Estimated Glomerular Filt Rate > 60; HDL Cholesterol 47 mg/dL (>40); Potassium 4.3 mmol/L (3.3-5.1); Sodium 138 mmol/L (135-145); Total Protein 7.1 g/dL (6.5-8.0); Triglycerides 238 mg/dL (<150)
== END 2025-02-19 13:21 | disposition home or self-care (01) ==
LOC: HO.LABR 13:20
PROVIDERS: PCP Internal Medicine; Visit Provider Physician Assistant
DX: E11.65 Type 2 diabetes mellitus with hyperglycemia (principal); E78.2 Mixed hyperlipidemia; E55.9 Vitamin D deficiency, unspecified
CPT/HCPCS: 36415; 80053; 80061; 82306; 83036; 85025